=== PATIENT | male | born 1980 | race African-American/Black ===

== ENCOUNTER 2024-03-04 19:28 | Emergency (ER) | payer OTHER, SELFPAY ==
[2024-03-04] VITALS (11 sets, daily range): BP systolic 100–140; BP diastolic 67–87; PULSE 83–109; RESP 15–25; TEMP 36.6; O2SAT 97–100
[2024-03-04 19:44] LABS: Glucose Point of Care 451 mg/dl (65-105)
[2024-03-04 20:01] LABS: Glucose Point of Care 461 mg/dl (65-105)
[2024-03-04] MEDS: SODIUM CHLORIDE 0.9% IV 1,000 ML 999 ML (20:10)
--- NOTE | 2024-03-04 20:11 | PC.NURSE ---
edp dr. marie verbal ordered a bolus of fluids at a rate of 999mls/ hour for patient. this rn used closed loop communication to confirm rate/ dose/ route/ patient/ time. edp dr. marie confirmed medication. this rn initiated iv bolus of normal saline at a rate of 999mls/ hour.
[2024-03-04 20:12] LABS: Basophils Percent Auto 0.7 % (0.2-1.2); Eosinophils Absolute Auto 0.1 K/mm3 (0-0.3); Eosinophils Percent Auto 0.8 % (0-4.4); Hematocrit 40.8 % (42.0-52.0); Hemoglobin 13.6 g/dL (14.0-18.0); Immature Granulocyte Absolute 0.01 K/mm3 (0.00-0.031); Immature Granulocyte Percent A 0.2 % (0-0.5); Lymphocytes Absolute Auto 2.29 K/mm3 (0.9-3.2); Lymphocytes Percent Auto 38.6 % (18.3-44.2); Mean Corpuscular HGB Conc 33.3 g/dl (32-36); Mean Corpuscular Hemoglobin 30.9 pg (26-34); Mean Corpuscular Volume 92.7 fl (80-100); Mean Platelet Volume 10.2 fl (7.4-10.4); Monocytes Absolute Auto 0.4 K/mm3 (0.1-0.6); Monocytes Percent Auto 7.3 % (2.6-8.5); Neutrophils Absolute Auto 3.1 K/mm3 (1.3-6.7); Neutrophils Percent Auto 52.4 % (45.5-73.1); Platelet Count Result 255 k/mm3 (150-375); Red Cell Distribution Width 11.5 % (11.5-14.5); White Blood Count 5.9 K/mm3 (4.5-10.0)
[2024-03-04 20:22] LABS: Lactic Acid Reflex 2.3 mmol/L (0.7-2.0)
[2024-03-04 20:24] LABS: Alanine Aminotransferase 17 U/L (6-50); Albumin Level 4.4 g/dL (3.5-5.1); Alkaline Phosphatase 139 U/L (38-126); Anion Gap 9 mmol/L (4-12); Aspartate Amino Transferase 21 U/L (17-59); Bilirubin,Total 0.7 mg/dL (0.2-1.3); Blood Urea Nitrogen 17 mg/dL (9-20); Calcium 9.3 mg/dL (8.4-10.2); Carbon Dioxide 26 mmol/L (22-30); Chloride 97 mmol/L (98-107); Estimated CRCL calculation 72 ml/min; Estimated Glomerular Filt Rate > 60; Glucose 463 mg/dL (65-110); Potassium 3.9 mmol/L (3.4-5.0); Sodium 132 mmol/L (137-145)
[2024-03-04 20:28] LABS: Beta-Hydroxybutyrate/Acetoacetate 0.29 mmol/L (0.02-0.27)
--- NOTE | 2024-03-04 20:48 | ED.GENADULT ---
HPI - General Adult General Chief complaint: Recheck/Abnormal Lab/Rx Stated complaint: high blood sugar Time Seen by Provider: 03/04/24 19:45 History of Present Illness HPI narrative: Patient is a 44-year-old male who presents to the emergency department this evening concerned of a high glucose level. Patient admits that he does have a history of diabetes, unsure if it is type 1 or 2, was diagnosed at a young age and initially was placed on metformin, however, when that did not work for him he was started on insulin. Patient states that his insulin regimen is either her 20 units of insulin in the morning and 20 in the evening or 10 in the morning, 10 in the afternoon and 10 in the evening. Patient states that today he did 20 and 20, however, he noticed that when he does 10 units 3 times a day that attempts to control his blood sugar better and believes that this may be the reason why his sugars were elevated today. Patient states that he does monitor his sugar levels frequently, sometimes he will forget to do so but his sugars the last few days have been within normal limits. Patient's current denying any symptoms including chest pain, shortness of breath, nausea or vomiting, denies any abdominal pain. No additional symptoms or concerns at this time. Related Data Allergies Allergy/AdvReac Type Severity Reaction Status Date / Time Penicillins Allergy Unknown Verified 07/17/15 14:59 Review of Systems Review of Systems: All systems are reviewed and are negative unless stated otherwise in the HPI. Exam Narrative: General: Alert, awake, afebrile, in no acute distress. Cardiovascular: Regular rate and rhythm, no murmurs, rubs or gallops, no peripheral edema. Respiratory: Clear to auscultation bilaterally, no tachypnea, no wheezing, no rhonchi, no rubs, no respiratory distress. Abdomen: Soft, nontender, nondistended, no rebound, no guarding, no peritoneal signs. Musculoskeletal: No joint swelling or deformity, normal muscle tone. Skin: No rashes or petechia, no signs of infection. Psychiatric: Alert and oriented, normal behavior and judgment for situation. Neurological: Alert and oriented to person, place, and time. Follows all commands. No focal deficits, speech is clear and fluent. Course Vital Signs Vital signs: Vital Signs Temperature 97.8 F 03/04/24 19:30 Pulse Rate 109 H 03/04/24 19:30 Respiratory Rate 18 03/04/24 19:30 Blood Pressure 140/87 03/04/24 19:30 Pulse Oximetry 100 03/04/24 19:30 Oxygen Delivery Room Air 03/04/24 19:30 Temperature 97.8 F 03/04/24 19:30 Pulse Rate 87 03/04/24 22:00 Respiratory Rate 18 03/04/24 22:00 Blood Pressure 111/71 03/04/24 22:00 Pulse Oximetry 97 03/04/24 22:00 Oxygen Delivery Room Air 03/04/24 19:30 Medical Decision Making MDM Narrative Medical decision making narrative: The patient was evaluated by myself in the emergency department. History is obtained from patient who is an independent historian and physical exam was performed. External medical records were reviewed at this time. IV was established and pertinent tests were ordered. Patient was administered a 1 L IV fluid bolus with normal saline. Laboratory results obtained revealing a glucose level of 463, lactic acid of 2.3, and beta hydroxybutyrate of 0.29. At this time, patient was administered 5 units of IV insulin. Differential diagnosis considerations include hyperglycemia versus diabetic ketoacidosis. Comorbidities impacting this visit include history of diabetes. I have evaluated and discussed social determinants of health with the patient that could potentially impact subsequent diagnosis and treatment plans. On repeat assessment of the patient, reevaluation revealed that the patient is doing well and is in no acute distress. Patient symptoms have improved since he arrived to our emergency department. Repeat vital signs were all reviewed and noted to be
[2024-03-04] MEDS: INSULIN HUMAN REGULAR (*BKC) 100 UNITS/ML IV PUSH (20:54)
[2024-03-04 22:03] LABS: Glucose Point of Care 124 mg/dl (65-105)
[2024-03-04 23:08] LABS: Reflex Lactic Acid Yes or No Add Lactic
== END 2024-03-04 22:09 | disposition home or self-care (01) ==
PROVIDERS: Emergency Provider Emergency Medicine
DX: E11.65 Type 2 diabetes mellitus with hyperglycemia (principal); Z79.4 Long term (current) use of insulin
CPT/HCPCS: 36415; 80053; 82010; 82948; 83605; 85025; 96361; 96374; 99284; J1815; J7030

== ENCOUNTER 2024-09-20 13:20 | Inpatient (IN) | payer OTHER, SELFPAY ==
[2024-09-20] VITALS (8 sets, daily range): BP systolic 96–124; BP diastolic 55–78; PULSE 110–141; RESP 15–24; TEMP 36.3–36.6; O2SAT 100; BMI 17.6
--- NOTE | ~2024-09-20 | CT_ITS ---
EXAMINATION: CT chest abdomen pelvis w con DATE: 09/20/2024 15:06 INDICATION: Diabetic ketoacidosis. TECHNIQUE: Computed tomography (CT) of the chest, abdomen, and pelvis was performed with 100 mL Omnip aque 350 intravenous contrast. Automated exposure control and iterative reconstruction technique were employed. The dose-length product was 305.54 mGy-cm. COMPARISON: None FINDINGS: CHEST CT: There is mild emphysema. There is mild scarring at the lung apices. There are a few scattered nodules in the lungs measuring up to 5 mm, likely benign. No pleural effusion. The heart size is normal. No pericardial effusion. There is mild thoracic spondylosis. ABDOMEN/PELVIS CT: The liver, gallbladder, spleen, pancreas, adrenal glands, and kidneys are normal. There are no dilate d loops of bowel. The appendix is not visualized. There are no pathologically enlarged lymph nodes. T here is no free intraperitoneal fluid. There is mild lumbar spondylosis. IMPRESSION: 1. Mild emphysema. Reviewed, dictated and finalized at location A. ING MACHINE TENDER IMPRESSION: 1. Mild emphysema.
--- NOTE | ~2024-09-20 | US_ITS ---
EXAMINATION: US renal BI DATE: 09/20/2024 17:00 INDICATION: Acute kidney injury. TECHNIQUE: Multiple ultrasound grayscale images of the kidneys were obtained. COMPARISON: CT 09/20/2024 FINDINGS: The right kidney measures 11.1 x 4.9 x 6.2 cm. The left kidney measures 10.7 x 5.9 x 5.5 cm. The kidn eys demonstrate increased parenchymal echogenicity, consistent with nonspecific nephropathy. There is no hydronephrosis. The bladder is normal. IMPRESSION: 1. Increased renal parenchymal echogenicity, consistent with nonspecific nephropathy. Reviewed, dictated and finalized at location A. AGENT IMPRESSION: 1. Increased renal parenchymal echogenicity, consistent with nonspecific nephr opathy.
[2024-09-20 13:58] LABS: Basophils Absolute Auto 0.1 K/mm3 (0.0-0.1); Basophils Percent Auto 0.5 % (0.2-1.2); Eosinophils Percent Auto 0.1 % (0-4.4); Hematocrit 54.8 % (42.0-52.0); Hemoglobin 17.7 g/dL (14.0-18.0); Immature Granulocyte Absolute 0.53 K/mm3 (0.00-0.031); Immature Granulocyte Percent A 2.6 % (0-0.5); Lymphocytes Absolute Auto 2.26 K/mm3 (0.9-3.2); Lymphocytes Percent Auto 10.9 % (18.3-44.2); Mean Corpuscular HGB Conc 32.3 g/dl (32-36); Mean Corpuscular Hemoglobin 30.8 pg (26-34); Mean Corpuscular Volume 95.3 fl (80-100); Mean Platelet Volume 10.4 fl (7.4-10.4); Monocytes Absolute Auto 0.9 K/mm3 (0.1-0.6); Monocytes Percent Auto 4.3 % (2.6-8.5); Neutrophils Absolute Auto 16.9 K/mm3 (1.3-6.7); Neutrophils Percent Auto 81.6 % (45.5-73.1); Platelet Count Result 313 k/mm3 (150-375); Red Blood Count 5.75 M/mm3 (4.6-6.20); Red Cell Distribution Width 12.4 % (11.5-14.5); White Blood Count 20.7 K/mm3 (4.5-10.0)
[2024-09-20 14:10] LABS: Alanine Aminotransferase 39 U/L (6-50); Albumin Level 5.7 g/dL (3.5-5.1); Alkaline Phosphatase 126 U/L (38-126); Aspartate Amino Transferase 47 U/L (17-59); Bilirubin,Total 1.1 mg/dL (0.2-1.3); Blood Urea Nitrogen 26 mg/dL (9-20); Calcium 9.9 mg/dL (8.4-10.2); Carbon Dioxide < 5 mmol/L (22-30); Chloride 97 mmol/L (98-107); Estimated CRCL calculation 33 ml/min; Estimated Glomerular Filt Rate 42; Glucose 316 mg/dL (65-110); Lipase 385 U/L (23-300); Potassium 4.7 mmol/L (3.4-5.0); Sodium 138 mmol/L (137-145)
[2024-09-20] MEDS: LACTATED RINGERS 2,000 ML 999 ML IV CONT (14:10)
[2024-09-20 14:22] LABS: Fractional Inspired Oxygen 21 %; HCO3 VBG 6.8 mEq/l (24.0-30.0); PO2 VBG 36.2 mmHg (35.0-45.0)
[2024-09-20 14:26] LABS: Device ROOM AIR; PCO2 VBG 25.9 mmHg (42.0-48.0); pH VBG 7.037 (7.300-7.400)
[2024-09-20 14:35] LABS: Magnesium 2.4 mg/dL (1.6-2.3)
--- NOTE | 2024-09-20 14:36 | ED_ITS ---
HPI - Nausea/Vomiting/Diarrhea General Chief complaint: Nausea/Vomiting/Diarrhea Stated complaint: weakness, vomiting, diarrhea Time Seen by Provider: 09/20/24 13:47 Source: patient Mode of arrival: ambulatory Limitations: no limitations History of Present Illness HPI Narrative: This is a 44-year-old male, with history of diabetes, with a recently increased dose of Jardiance from 10mg to 25mg who presents emergency department with nausea, vomiting, generalized weakness for the past day and 25 lb weight loss with a past 2 months. The patient denies any known sick contacts or recent travel. He denies bleeding, chest pain, shortness of breath, focal weakness, or loss of consciousness. He has no other complaints at this time. Related Data Home Medications Medication Instructions Recorded Confirmed atorvastatin 80 mg tablet 80 mg PO HS 09/20/24 09/20/24 empagliflozin 25 mg tablet 25 mg PO DAILY 09/20/24 09/20/24 (Jardiance) insulin glargine U-300 conc 300 10 unit subcut HS 09/20/24 09/20/24 unit/mL (1.5 mL) subcutaneous pen (Toujeo SoloStar U-300 Insulin) Allergies Allergy/AdvReac Type Severity Reaction Status Date / Time mold Allergy Mild Congested Verified 09/20/24 17:36 Penicillins Allergy Unknown Unknown Verified 09/20/24 17:36 Review of Systems Review of Systems: All systems reviewed & are unremarkable except as noted in HPI and below PMFSH Past Medical History Medical History (Updated 09/20/24 @ 19:12 by Renita Vásquez PA-C) 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 Code status: Full code. Years smoked: 5 Smoking status: Current every day smoker Tobacco type: cigarettes Second hand tobacco smoke exposure: Yes Alcohol intake: current Drinks per week: 1 Substance use type: marijuana Do You Feel Safe in your Home?: Yes Lack of Transportation: No Lack of Food: Never True Current Housing: I Have Housing Concerned About Future Housing: No Difficulty Paying Gas/Electric Bills: No Difficulty Paying for Meds: No Currently Unemployed: No Education: Bachelor's Degree Difficulty w/ Childcare or Family Care: No Additional living arrangements comments: Lives in [place] with spouse. They have 2 teenaged boys. Additional occupation/education comments: [employer]. Spiritual care concerns: No Exam Narrative: GENERAL: Well-developed, cachectic, and in no acute distress. appears uncomfortable HEAD: Normocephalic, atraumatic. EYES: PERRLA and EOMI. ENT: Nares clear, no rhinorrhea or epistaxis. Mucous membranes dry. Oropharynx without tonsillar hypertrophy exudate or other lesions. CHEST: Clear to auscultation. No respiratory distress. No wheezes rales or rhonchi HEART: tachycardic with regular rhythm. No murmur heard. Normal peripheral pulses. ABDOMEN: Soft, nontender, nondistended, normal active bowel sounds. EXTREMITIES: Normal range of motion. No edema. SKIN: Warm, dry, no rash. NEURO: Alert and oriented x3. No focal deficit. Moving all 4 limbs spontaneously PSYCH: Normal mood and affect. Course Course Emergency Course: 14:36 - VBG demonstrates a pH of 7.04 with bicarb of 6 and pCO2 of 25.9. I suspect metabolic acidosis, likely secondary to DKA. chemistries demonstrate creatinine elevation of 2.1 with chloride of 97 and bicarb of 5. Anion gap of 36. potassium 4.7. Will give an additional L of fluids for a total of 3 followed by insulin drip, potassium supplementation. Lipase elevated to 385. 15:30 - CT chest abdomen pelvis negative for acute intraabdominal or cardiothoracic process, does show emphysema. I discussed the patient with hospitalist, JESSE Vásquez who accepts admission and washing machine repairer, Dr. Engle who accepts admission to ICU. I discussed these findings recommendations with the patient, who voiced understanding and is comfortable with plan. Vital Signs Vital signs: Vital Signs Temperature 97.8 F 09/20/24 13:22 Pulse Rate 141 H 09/20/24 13:22 Respiratory Rate 18 09/20/24 13:22 Blood Pressure 108/74 09/20/24 13:22 Pulse Oximetry 100 09/20/24 13:22 Oxygen Delivery Room Air 09/20/24 13:22 Temperature 97.4 F L 09/20/24 20:00 Pulse Rate 110 H 09/20/24 22:00 Respiratory Rate 16 09/20/24 22:00 Blood Pressure 96/55 L 09/20/24 22:00 Pulse Oximetry 100 09/20/24 22:00 Oxygen Delivery Room Air 09/20/24 20:00 MDM - Nausea/Vomiting/Diarrhea MDM Narrative Medical decision making narrative: Plan: Labs, IV fluids, antiemetics, VBG, reassess Differential Diagnosis Differential diagnosis: Likely gastroenteritis, drug-induced nausea and vomiting, dehydration and other ( DKA, UTI, malignancy, medication side effect, metabolic abnormality, other) Lab Data 09/20/24 13:45 09/20/24 22:37 Labs: Lab Results 09/20/24 09/20/24 09/20/24 Range/Units 13:45 14:16 14:18 WBC 20.7 H (4.5-10.0) K/mm3 RBC 5.75 (4.6-6.20) M/mm3 Hgb 17.7 D (14.0-18.0) g/dL Hct 54.8 H (42.0-52.0) % MCV 95.3 (80-100) fl MCH 30.8 (26-34) pg MCHC 32.3 (32-36) g/dl RDW 12.4 (11.5-14.5) % Plt Count 313 (150-375) k/mm3 MPV 10.4 (7.4-10.4) fl Immature Gran % (Auto) 2.6 H (0-0.5) % Neut % (Auto) 81.6 H (45.5-73.1) % Lymph % (Auto) 10.9 L (18.3-44.2) % [place] % (Auto) 4.3 (2.6-8.5) % Eos % (Auto) 0.1 (0-4.4) % Baso % (Auto) 0.5 (0.2-1.2) % Lymph # (Auto) 2.26 (0.9-3.2) K/mm3 [place] # (Auto) 0.9 H (0.1-0.6) K/mm3 Eos # (Auto) 0.0 (0-0.3) K/mm3 Baso # (Auto) 0.1 (0.0-0.1) K/mm3 Abs Immat Gran (auto) 0.53 H (0.00-0.031) K/mm3 Absolute Neuts (auto) 16.9 H (1.3-6.7) K/mm3 Absolute Nucleated RBC 0.000 (0.0-0.012) K/mm3 Nucleated RBC % 0.0 (0.0-0.2) % Sodium 138 (137-145) mmol/L Potassium 4.7 (3.4-5.0) mmol/L Chloride 97 L (98-107) mmol/L Carbon Dioxide < 5 L (22-30) mmol/L Anion Gap (4-12) mmol/L BUN 26 H (9-20) mg/dL Creatinine 2.10 H (0.7-1.3) mg/dL Estim Creat Clear Calc 33 ml/min Estimated GFR 42 L (59 - ) Glucose 316 H (65-110) mg/dL POC Capillary Glucose (65-105) mg/dl Hemoglobin A1c 11.9 H (<5.7) % Lactic Acid 4.0 H (0.7-2.0) mmol/L Calcium 9.9 (8.4-10.2) mg/dL Phosphorus 10.5 H (2.5-4.5) mg/dL Magnesium 2.5 H 2.4 H (1.6-2.3) mg/dL Total Bilirubin 1.1 (0.2-1.3) mg/dL AST 47 (17-59) U/L ALT 39 (6-50) U/L Alkaline Phosphatase 126 (38-126) U/L C-Reactive Protein < 0.5 (<1.0) mg/dL Total Protein 9.0 H (6.3-8.2) g/dL Albumin 5.7 H (3.5-5.1) g/dL Lipase 385 H (23-300) U/L Beta-Hydroxybutyrate/Acetoacetate < 1.50 H (0.02-0.27) mmol/L Procalcitonin 0.1 ng/mL Urine Color (Yellow) Urine Appearance (Clear) Urine pH (5.0-9.0) Ur Specific [place] (1.001-1.035) Urine Protein (Negative) mg/dL Urine Glucose (UA) (Negative) mg/dL Urine Ketones (Negative) mg/dL Ur Blood (Man) (Negative) Urine Nitrate (Negative) Urine Bilirubin (Negative) Urine Urobilinogen (<2.0) mg/dL Add Ur Microanalysis Leukocyte Esterase Rfl (Negative) JAN/UL Urine RBC (0-2) /hpf Urine WBC (0-3) /hpf Ur Squamous Epith Cells (Few) /hpf Urine Bacteria /hpf Urine Casts Hyaline Casts (None) /lpf 09/20/24 09/20/24 09/20/24 Range/Units 15:18 15:42 16:56 WBC (4.5-10.0) K/mm3 RBC (4.6-6.20) M/mm3 Hgb (14.0-18.0) g/dL Hct (42.0-52.0) % MCV (80-100) fl MCH (26-34) pg MCHC (32-36) g/dl RDW (11.5-14.5) % Plt Count (150-375) k/mm3 MPV (7.4-10.4) fl Immature Gran % (Auto) (0-0.5) % Neut % (Auto) (45.5-73.1) % Lymph % (Auto) (18.3-44.2) % [place] % (Auto) (2.6-8.5) % Eos % (Auto) (0-4.4) % Baso % (Auto) (0.2-1.2) % Lymph # (Auto) (0.9-3.2) K/mm3 [place] # (Auto) (0.1-0.6) K/mm3 Eos # (Auto) (0-0.3) K/mm3 Baso # (Auto) (0.0-0.1) K/mm3 Abs Immat Gran (auto) (0.00-0.031) K/mm3 Absolute Neuts (auto) (1.3-6.7) K/mm3 Absolute Nucleated RBC (0.0-0.012) K/mm3 Nucleated RBC % (0.0-0.2) % Sodium (137-145) mmol/L Potassium (3.4-5.0) mmol/L Chloride (98-107) mmol/L Carbon Dioxide (22-30) mmol/L Anion Gap (4-12) mmol/L BUN (9-20) mg/dL Creatinine (0.7-1.3) mg/dL Estim Creat Clear Calc ml/min Estimated GFR (59 - ) Glucose (65-110) mg/dL POC Capillary Glucose 342 H 282 H (65-105) mg/dl Hemoglobin A1c (<5.7) % Lactic Acid (0.7-2.0) mmol/L Calcium (8.4-10.2) mg/dL Phosphorus (2.5-4.5) mg/dL Magnesium (1.6-2.3) mg/dL Total Bilirubin (0.2-1.3) mg/dL AST (17-59) U/L ALT (6-50) U/L Alkaline Phosphatase (38-126) U/L C-Reactive Protein (<1.0) mg/dL Total Protein (6.3-8.2) g/dL Albumin (3.5-5.1) g/dL Lipase (23-300) U/L Beta-Hydroxybutyrate/Acetoacetate (0.02-0.27) mmol/L Procalcitonin ng/mL Urine Color Yellow (Yellow) Urine Appearance Clear (Clear) Urine pH 5.0 (5.0-9.0) Ur Specific [place] 1.025 (1.001-1.035) Urine Protein 2+ H (Negative) mg/dL Urine Glucose (UA) 3+ H (Negative) mg/dL Urine Ketones 4+ H (Negative) mg/dL Ur Blood (Man) 1+ H (Negative) Urine Nitrate Negative (Negative) Urine Bilirubin Negative (Negative) Urine Urobilinogen 0.2 (<2.0) mg/dL Add Ur Microanalysis Reviewed Leukocyte Esterase Rfl Negative (Negative) JAN/UL Urine RBC 0-2 (0-2) /hpf Urine WBC 6-10 H (0-3) /hpf Ur Squamous Epith Cells None seen (Few) /hpf Urine Bacteria None seen /hpf Urine Casts 6-10 Hyaline Casts Present (None) /lpf ABG Data ABG results: 09/20/24 14:18 VBG pH 7.037 L* VBG pCO2 25.9 L* VBG pO2 36.2 VBG HCO3 6.8 L O2 Delivery Device Room air O2 Liters/Min Not Reportable FiO2 21 Critical Care Time Critical Care Time Critical Care Time: Yes Total Critical Care Time: 35 Discharge Plan Discharge Clinical Impression: Metabolic acidosis, JERRY (acute kidney injury), Elevated lipase DKA (diabetic ketoacidosis) Qualifiers: Diabetes mellitus type: other specified (including JESSICA) Diabetes mellitus complication detail: without coma Qualified Code(s): E13.10 - Other specified diabetes mellitus with ketoacidosis without coma Patient Disposition: Still a Patient Condition: Critical Time of Disposition: 15:30
[2024-09-20 15:34] LABS: Add Urine Microscopic? YES; Appearance Urine Clear (Clear); Bacteria Urine None Seen /hpf; Bilirubin Urine Negative (Negative); Blood Urine 1+ (Negative); Color Urine Yellow (Yellow); Glucose Urine UA 3+ mg/dL (Negative); Hyaline Casts Urine Present /lpf; Ketones Urine 4+ mg/dL (Negative); Leukocyte Esterase Ur Negative LEU/UL (Negative); Need Manual Microscopic Reviewed; Nitrate Urine Negative (Negative); Protein Urine 2+ mg/dL (Negative); RBC Urine 0-2 /hpf (0-2); Specific Grav Ur 1.025 (1.001-1.035); Squamous Epithelial Cell Urine None Seen /hpf (Few); Urobilinogen Urine 0.2 mg/dL (<2.0)
--- NOTE | 2024-09-20 15:35 | P.HP_ITS ---
H&P: HPI History of Present Illness Date/Time: 09/20/24 15:45 Chief Complaint: Nausea, vomiting, weakness. Narrative: This is a 44-year-old male with type 1.5 diabetes mellitus who presented to the emergency department via private vehicle for evaluation of nausea, vomiting, and weakness. The patient provides the following history. He has been on Toujeo for quite some time and Jardiance was added to his regimen several months ago. Since that time he has lost about 25 lb unintentionally; he reports having a good appetite and denies early satiety and frequent nausea or vomiting. Last evening however he began to feel unwell with symptoms to include nausea, burning epigastric discomfort, and multiple bouts of nonbloody and nonbilious emesis. He has had a few loose stools as well. Today he was feeling very fatigued, weak, and extremely thirsty and came in for evaluation. He has some sinus congestion but attributes that to cold (he works outside). He denies fever, chills, sweats, headache, sore throat, cough, shortness of breath, melena, hematochezia, dysuria, and open wounds. Mother was diagnosed with colon cancer in her late 70s or early 80s. He has never had a colonoscopy. No known history of thyroid disease. In the ED: Vital signs on arrival include a temperature 97.8?, pulse 141, blood pressure 108/74, respiratory 18, SpO2 100% room air. Labs are significant for WBC count of 20.7, hemoglobin 17.7, hematocrit 54.8%, chloride 97, serum carbon dioxide < 5, BUN 26, creatinine 2.10, glucose 316, lactic acid 4.0, total protein 9.0, albumin 5.7. Urinalysis was positive for 2+ protein, 3+ glucose, 4+ ketones, 1+ blood, and [address] of the chest, abdomen, and pelvis was without acute findings. VBG with pH of 7.037, pCO2 25.9, HC03 6.8. He received 3 L lactated Ringer's bolus and was started on and insulin drip and he is being admitted to the ICU in this setting for treatment of diabetic ketoacidosis. Review of Systems Review of Systems: 12 systems were reviewed and are negativ e except for as per HPI. 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 Code status: Full code. Years smoked: 5 Smoking status: Current every day smoker Tobacco type: cigarettes Second hand tobacco smoke exposure: Yes Alcohol intake: current Drinks per week: 1 Substance use type: marijuana Do You Feel Safe in your Home?: Yes Lack of Transportation: No Lack of Food: Never True Current Housing: I Have Housing Concerned About Future Housing: No Difficulty Paying Gas/Electric Bills: No Difficulty Paying for Meds: No Currently Unemployed: No Education: Bachelor's Degree Difficulty w/ Childcare or Family Care: No Additional living arrangements comments: Lives in [place] with spouse. They have 2 teenaged boys. Additional occupation/education comments: [employer]. Spiritual care concerns: No Meds Home Medications and Allergies Home Medications Medication Instructions Recorded Confirmed Type atorvastatin 80 mg tablet 80 mg PO HS 09/20/24 09/20/24 History empagliflozin 25 mg tablet 25 mg PO DAILY 09/20/24 09/20/24 History (Jardiance) insulin glargine U-300 conc 300 10 unit subcut HS 09/20/24 09/20/24 History unit/mL (1.5 mL) subcutaneous pen (Toujeo SoloStar U-300 Insulin) Allergies Allergy/AdvReac Type Severity Reaction Status Date / Time mold Allergy Mild Congested Verified 09/20/24 17:36 Penicillins Allergy Unknown Unknown Verified 09/20/24 17:36 Vital Signs Vital Signs - 24 hr 09/20/24 13:22 Temperature 97.8 F Pulse Rate 141 H Respiratory Rate 18 Blood Pressure 108/74 Pulse Oximetry 100 Oxygen Delivery Room Air Exam Narrative: General: Moderately ill-appearing male lying on his right side in bed. Weight: 54.09 kg. BMI: 17.6. HEENT: PERRL, EOMI. Sclera anicteric. Tacky mucous membranes. Some cracked teeth and dental caries. Neck: Supple. No lymphadenopathy. Respiratory: Lungs are clear to auscultation bilaterally. Cardiovascular: Tachycardic with normal S1-S2. Gastrointestinal: Abdomen is soft, flat, and nondistended with positive bowel sounds. He is slightly tender to deep palpation epigastric region. No guarding or rebound tenderness. Skin: Warm and dry. No rash or lesions on limited exam. Extremities: No cyanosis, clubbing, or edema. Radial and pedal pulses intact. Neurological: Alert. Cranial nerves 2-12 are grossly intact. No gross focal deficits to casual conversation. Psychiatric: Pleasant and cooperative with normal mood and affect. Judgment and insight intact. H&P: Results Labs Labs: Short CBC 09/20/24 Range/Units 13:45 WBC 20.7 H (4.5-10.0) K/mm3 Hgb 17.7 D (14.0-18.0) g/dL Hct 54.8 H (42.0-52.0) % Plt Count 313 (150-375) k/mm3 BMP 09/20/24 13:45 Sodium 138 Potassium 4.7 Chloride 97 L Carbon Dioxide < 5 L BUN 26 H Creatinine 2.10 H Glucose 316 H Calcium 9.9 Liver Function 09/20/24 Range/Units 13:45 Total Bilirubin 1.1 (0.2-1.3) mg/dL AST 47 (17-59) U/L ALT 39 (6-50) U/L Alkaline Phosphatase 126 (38-126) U/L Albumin 5.7 H (3.5-5.1) g/dL Imaging Chest/Abdomen/Pelvis CT 09/20/24 15:12 IMPRESSION: 1. Mild emphysema. ABG ABG results: 09/20/24 14:18 VBG pH 7.037 L* VBG pCO2 25.9 L* VBG pO2 36.2 VBG HCO3 6.8 L O2 Delivery Device Room air O2 Liters/Min Not Reportable FiO2 21 Assessment and Plan Assessment and plan (1) Diabetic ketoacidosis: Code(s): E11.10 - Type 2 diabetes mellitus with ketoacidosis without coma Status: Acute Assessment and Plan: Patient presents with hyperglycemia, increased anion gap metabolic acidosis, and ketonuria. * Admit to ICU on insulin drip which will be titrated per protocol. * Continue Q hourly Accu-Cheks and Q 4 hour BMPs to monitor for anion gap closure. * Resume basal insulin upon resolution of DKA. * Dietitian and certified adaptive physical educator consulted. * Hold/discontinue Jardiance. (2) Acute kidney injury: Code(s): N17.9 - Acute kidney failure, unspecified Status: Acute Assessment and Plan: Most likely related to hypovolemia from dehydration, he is dry on exam and quite hemoconcentrated. * Received 3 L lactated Ringer's in the ED, continue IV fluids. * Avoid nephrotoxic agents and renally dose all medications. * Monitor strict I/O and daily weights. * Renal ultrasound ordered. (3) Metabolic acidosis, increased anion gap: Code(s): E87.29 - Other acidosis Status: Acute Assessment and Plan: Related to DKA and renal insufficiency. Lactic acid level was elevated at 4.0. WBC count is 20.7 though doubt sepsis. * Repeat lactic acid level now that he has been adequately hydrated. * Continue q.4 BMPs to monitor for anion gap closure. * Blood cultures have been obtained. (4) Dehydration: Code(s): E86.0 - Dehydration Status: Acute Assessment and Plan: Received 3 L lactated Ringer's in the ED, continue IV fluids as above. (5) Unintentional weight loss: Code(s): R63.4 - Abnormal weight loss Status: Acute Assessment and Plan: Patient reports a 25 lb weight loss in the last couple of months after starting Jardiance which may very well be the cause. Mother had colon cancer in her late 70s or early. * Check TSH. * He has never had a colonoscopy. * Discontinue Jardiance. Quality VTE Prophylaxis VTE prophylaxis: pharmacologic ordered Hospitalist MIPS Advance Care Plan I have confirmed that the patient's Advanced Care Plan is present, code status is documented, or surrogate decision maker is listed in patient medical record.: Yes Medication Reconciliation I have utilized all available resources to obtain, update and review the p atients current medications (includes all prescriptions, OTC, herbals, cannabis, and nutritional supplements).: Yes Critical Care Time Critical Care Time: Yes Total Critical Care Time: 55 Attestation: Due to a high probability of clinically significant, life threatening deteri oration, the patient required my highest level of preparedness to intervene emergently and I personally spent this critical care time directly and personally managing the patient. This critical care time included obtaining a history; examining the patient; pulse oximetry; ordering and review of studies; arranging urgent treatment with development of a management plan; evaluation of patient's response to treatment; frequent reassessment; and discussions with other providers. It was exclusive of separately billable procedures and treating other patients and teaching time. Please see Assessment and Plan section and the rest of the note for further information on patient assessment and treatment.
[2024-09-20] MEDS: LACTATED RINGERS 1,000 ML 999 ML IV CONT (15:43)
[2024-09-20] MEDS: INSULIN HUMAN REGULAR (*BKC) 100 UNITS in SODIUM CHLORIDE 0.9% IV 99 ML 5.5 UNITS IV CONT (15:45)
[2024-09-20] MEDS: INSULIN HUMAN REGULAR (*BKC) 100 UNITS/ML 9 UNITS IV PUSH (15:45)
[2024-09-20] MEDS: ONDANSETRON INJ 4 MG/2 ML VIAL IV PUSH (15:57)
[2024-09-20 15:59] LABS: Glucose Point of Care 342 mg/dl (65-105)
[2024-09-20 16:14] LABS: Beta-Hydroxybutyrate/Acetoacetate < 1.50 mmol/L (0.02-0.27)
[2024-09-20 16:27] LABS: CRP < 0.5 mg/dL (<1.0)
[2024-09-20] MEDS: PANTOPRAZOLE SODIUM IV 40 MG VIAL IV PUSH (16:33)
[2024-09-20 16:44] LABS: Procalcitonin 0.1 ng/mL
[2024-09-20 16:57] LABS: Glucose Point of Care 282 mg/dl (65-105)
[2024-09-20 17:18] LABS: Reflex Lactic Acid Yes or No Add Lactic
--- NOTE | 2024-09-20 17:23 | PC.NURSE ---
This patient, Mike Hooper, was admitted to Intensive Care Unit-3 at approximately 1715. Patient/family oriented to hospital policies and general routines including ID bracelet, bed and alarms, visiting hours, pain management, procedures, bathroom and other care routines, personal items, smoking policy, room service/diet, and visiting hours. Information on how to activate the Rapid Response Team has been discussed. Patient/Family are encouraged to report perceived risks to care and to ask questions if they do not understand what they are told or what they should do.
[2024-09-20] MEDS: SODIUM CHLORIDE 0.9% IV 1,000 ML 150 ML IV CONT (17:27)
[2024-09-20] MEDS: KCL 20 MEQ/D5/0.45% SOD CHL 1,000 ML 150 ML IV CONT (17:57)
[2024-09-20 18:08] LABS: Glucose Point of Care 249 mg/dl (65-105)
[2024-09-20 18:28] LABS: Hemoglobin A1C 11.9 % (<5.7)
[2024-09-20 18:56] LABS: Glucose Point of Care 204 mg/dl (65-105)
[2024-09-20 18:58] LABS: Magnesium 2.5 mg/dL (1.6-2.3); Phosphorus 10.5 mg/dL (2.5-4.5)
[2024-09-20 19:05] LABS: Lactic Acid 1.7 mmol/L (0.7-2.0)
[2024-09-20 19:06] LABS: Blood Urea Nitrogen 23 mg/dL (9-20); Calcium 8.7 mg/dL (8.4-10.2); Carbon Dioxide < 5 mmol/L (22-30); Chloride 107 mmol/L (98-107); Estimated CRCL calculation 50 ml/min; Estimated Glomerular Filt Rate > 60; Glucose 236 mg/dL (65-110); Potassium 4.6 mmol/L (3.4-5.0); Sodium 138 mmol/L (137-145)
[2024-09-20 19:25] LABS: MRSA (PCR) NOT DETECTED (NOT DETECTE)
[2024-09-20] MEDS: ATORVASTATIN 40 MG TABLET 80 MG PO (19:56)
[2024-09-20 20:03] LABS: Glucose Point of Care 240 mg/dl (65-105)
[2024-09-20 21:12] LABS: Glucose Point of Care 175 mg/dl (65-105)
[2024-09-20 22:04] LABS: Glucose Point of Care 206 mg/dl (65-105)
[2024-09-20 23:05] LABS: Anion Gap 19 mmol/L (4-12); Blood Urea Nitrogen 21 mg/dL (9-20); Calcium 8.6 mg/dL (8.4-10.2); Carbon Dioxide 8 mmol/L (22-30); Chloride 108 mmol/L (98-107); Estimated CRCL calculation 58 ml/min; Estimated Glomerular Filt Rate > 60; Glucose 196 mg/dL (65-110); Potassium 4.6 mmol/L (3.4-5.0); Sodium 135 mmol/L (137-145)
[2024-09-20 23:05] LABS: Glucose Point of Care 189 mg/dl (65-105)
[2024-09-20 23:36] LABS: Creatine Kinase 72 U/L (55-170)
[2024-09-21] VITALS (9 sets, daily range): BP systolic 102–119; BP diastolic 48–84; PULSE 88–109; RESP 14–20; TEMP 36.4–37; O2SAT 99–100; BMI 19.3
[2024-09-21 00:01] LABS: Thyroid Stimulating Hormone Reflex 0.345 uIU/mL (0.465-4.68)
[2024-09-21 00:14] LABS: Glucose Point of Care 202 mg/dl (65-105)
[2024-09-21] MEDS: KCL 20 MEQ/D5/0.45% SOD CHL 1,000 ML 150 ML IV CONT ×2 (01:27→08:14)
[2024-09-21 01:37] LABS: Glucose Point of Care 230 mg/dl (65-105)
[2024-09-21 02:41] LABS: Glucose Point of Care 216 mg/dl (65-105)
[2024-09-21 03:29] LABS: Basophils Absolute Auto 0.1 K/mm3 (0.0-0.1); Basophils Percent Auto 0.2 % (0.2-1.2); Hematocrit 43.2 % (42.0-52.0); Hemoglobin 14.7 g/dL (14.0-18.0); Immature Granulocyte Absolute 0.19 K/mm3 (0.00-0.031); Immature Granulocyte Percent A 0.9 % (0-0.5); Lymphocytes Absolute Auto 1.66 K/mm3 (0.9-3.2); Mean Corpuscular Hemoglobin 31.1 pg (26-34); Mean Corpuscular Volume 91.3 fl (80-100); Mean Platelet Volume 9.5 fl (7.4-10.4); Monocytes Absolute Auto 1.6 K/mm3 (0.1-0.6); Monocytes Percent Auto 7.8 % (2.6-8.5); Neutrophils Absolute Auto 17.3 K/mm3 (1.3-6.7); Neutrophils Percent Auto 83.1 % (45.5-73.1); Platelet Count Result 265 k/mm3 (150-375); Red Blood Count 4.73 M/mm3 (4.6-6.20); Red Cell Distribution Width 12.4 % (11.5-14.5); White Blood Count 20.8 K/mm3 (4.5-10.0)
[2024-09-21 03:41] LABS: Alanine Aminotransferase 27 U/L (6-50); Albumin Level 4.4 g/dL (3.5-5.1); Alkaline Phosphatase 85 U/L (38-126); Anion Gap 14 mmol/L (4-12); Aspartate Amino Transferase 27 U/L (17-59); Blood Urea Nitrogen 19 mg/dL (9-20); Calcium 8.7 mg/dL (8.4-10.2); Carbon Dioxide 14 mmol/L (22-30); Chloride 108 mmol/L (98-107); Estimated CRCL calculation 58 ml/min; Estimated Glomerular Filt Rate > 60; Glucose 242 mg/dL (65-110); Magnesium 2.1 mg/dL (1.6-2.3); Potassium 4.8 mmol/L (3.4-5.0); Sodium 136 mmol/L (137-145)
[2024-09-21 05:17] LABS: Glucose Point of Care 225 mg/dl (65-105)
[2024-09-21 06:41] LABS: Glucose Point of Care 227 mg/dl (65-105)
[2024-09-21 08:00] LABS: Glucose Point of Care 253 mg/dl (65-105)
[2024-09-21] MEDS: ENOXAPARIN 40 MG/0.4 ML SYRINGE SUB-Q (08:16)
[2024-09-21] MEDS: PANTOPRAZOLE SODIUM IV 40 MG VIAL IV PUSH (08:16)
[2024-09-21 08:23] LABS: Anion Gap 10 mmol/L (4-12); Blood Urea Nitrogen 17 mg/dL (9-20); Calcium 8.7 mg/dL (8.4-10.2); Carbon Dioxide 19 mmol/L (22-30); Chloride 108 mmol/L (98-107); Estimated CRCL calculation 64 ml/min; Estimated Glomerular Filt Rate > 60; Glucose 243 mg/dL (65-110); Potassium 4.6 mmol/L (3.4-5.0); Sodium 137 mmol/L (137-145)
[2024-09-21] MEDS: LACTATED RINGERS 1,000 ML 75 ML IV CONT ×2 (08:53→22:32)
[2024-09-21] MEDS: INSULIN GLARGINE (*BKC) 100 UNITS/ML 10 UNITS SUB-Q (08:53)
[2024-09-21 09:19] LABS: Lipase 442 U/L (23-300)
--- NOTE | 2024-09-21 09:23 | WPDCNINT ---
Assessment and Plan Assessment and plan (1) Diabetic ketoacidosis: Code(s): E11.10 - Type 2 diabetes mellitus with ketoacidosis without coma Status: Acute Assessment and Plan: Patient presented with elevated blood sugar and beta hydroxybutyrate suggestive of tPA No signs of infection Pt was given IVF bolus and started on infusion Insulin infusion was started and Q1H glucose monitoring is being done Serial labs were done Patient now clinically improved and asymptomatic. Anion gap has closed. I will transition into subcutaneous insulin and start him on a diet drawer hardware worker and dietitian has been consulted (2) Acute kidney injury: Code(s): N17.9 - Acute kidney failure, unspecified Status: Acute Assessment and Plan: Presented with elevated creatinine likely secondary to dehydration and hypovolemia Continue IV fluids and creatinine has improved with IV fluids Monitor urine output electrolytes and creatinine CT scan of the abdomen pulse 2 not show any hydronephrosis stones or obstruction (3) Elevated lipase: Code(s): R74.8 - Abnormal levels of other serum enzymes Status: Acute Assessment and Plan: Mildly elevated lipase. CT abdomen pelvis was unremarkable. Denies any abdominal pain at this time likely secondary to nausea vomiting. Monitor lipase. Advance diet as tolerated (4) Tobacco abuse: Code(s): Z72.0 - Tobacco use Status: Acute Assessment and Plan: Patient was encouraged and counseled to quit smoking (5) Abnormal TSH: Code(s): R79.89 - Other specified abnormal findings of blood chemistry Status: Acute Assessment and Plan: Free T4 level is pending (6) Dehydration: Code(s): E86.0 - Dehydration Status: Acute Assessment and Plan: Switch to LR continue IV fluids for another 24 hours Plan DVT prophylaxis -Lovenox Stress ulcer prophylaxis -Protonix Nutrition -start diabetic diet Code Status - Full Code Transfer out of ICU today Lumber Loader Consult Note Consult date: 09/21/24 Reason for consult: DKA, JERRY HPI: Mike Hooper is a 44 year old male T with past medical history of diabetes mellitus who is on Jardiance and long-acting insulin presented to the emergency department on 09/20 with complaint of nausea, vomiting, and weakness. He has been on Toujeo for quite some time and Jardiance was added to his regimen several months ago. Since that time he has lost about 25 lb u. He states he was feeling fine and was at his baseline until day before yesterday when he started feeling weak. He was tired and did not go to work. Yesterday he started having nausea vomiting and diarrhea. He also had some abdominal pain. No hematochezia melena hematemesis. No fever chest pain shortness a breath. No loss of consciousness dizziness or lightheadedness. All other systems were reviewed and were negative On arrival his Vital signs were temperature 97.8?, pulse 141, blood pressure 108/74, respiratory 18, SpO2 100% room air. Labs are significant for WBC count of 20.7, hemoglobin 17.7, hematocrit 54.8%, chloride 97, serum carbon dioxide < 5, BUN 26, creatinine 2.10, glucose 316, lactic acid 4.0, total protein 9.0, albumin 5.7. Urinalysis was positive for 2+ protein, 3+ glucose, 4+ ketones, 1+ blood, and [address] of the chest, abdomen, and pelvis was without acute findings. VBG with pH of 7.037, pCO2 25.9, HC03 6.8. He received 3 L lactated Ringer's bolus and was started on and insulin drip and was admitted to the ICU for further treatment of DKA. This morning he states he feels significantly better and denies any specific complaints. He states he is thirsty and would like to drink water and eat food. He states that his nausea vomiting abdominal pain has resolved. Patient denies fever, chest pain, shortness of breath, cough, nausea vomiting, abdominal pain,, diarrhea, headache or constipation. All other systems were reviewed and were negative Review of Systems Review of Systems: All systems reviewed & are unremarkable except as noted in HPI and below (HPI) [facility] Past Medical History Medical History Diabetes mellitus type 1.5 diagnosed in late 20s Surgical History Surgical History No history of previous surgery Family History Family History Mother Colon cancer Social History Social History Social History: Surrogate medical decision maker: Paola Hooper, mother. Code status: Full code. Years smoked: 5 Smoking status: Current every day smoker Tobacco type: cigarettes Second hand tobacco smoke exposure: Yes Alcohol intake: current Drinks per week: 1 Substance use type: marijuana Do You Feel Safe in your Home?: Yes Lack of Transportation: No Lack of Food: Never True Current Housing: I Have Housing Concerned About Future Housing: No Difficulty Paying Gas/Electric Bills: No Difficulty Paying for Meds: No Currently Unemployed: No Education: Bachelor's Degree Difficulty w/ Childcare or Family Care: No Additional living arrangements comments: Lives in [place] with spouse. They have 2 teenaged boys. Additional occupation/education comments: [employer]. Spiritual care concerns: No Meds Home Medications and Allergies Home Medications Medication Instructions Recorded Confirmed Type atorvastatin 80 mg tablet 80 mg PO HS 09/20/24 09/20/24 History empagliflozin 25 mg tablet 25 mg PO DAILY 09/20/24 09/20/24 History (Jardiance) insulin glargine U-300 conc 300 10 unit subcut HS 09/20/24 09/20/24 History unit/mL (1.5 mL) subcutaneous pen (Toujeo SoloStar U-300 Insulin) Allergies Allergy/AdvReac Type Severity Reaction Status Date / Time mold Allergy Mild Congested Verified 09/20/24 17:36 Penicillins Allergy Unknown Unknown Verified 09/20/24 17:36 Vital Signs Vital Signs - 24 hr 09/20/24 13:22 09/20/24 15:30 09/20/24 16:20 Temperature 36.6 C Pulse Rate 141 H 120 H 123 H Respiratory Rate 18 24 H 17 Blood Pressure 108/74 123/60 117/72 Pulse Oximetry 100 100 100 Oxygen Delivery Room Air 09/20/24 16:30 09/20/24 17:16 09/20/24 18:00 Temperature Pulse Rate 120 H 121 H 118 H Respiratory Rate 21 H Blood Pressure 124/70 117/77 Pulse Oximetry 100 Oxygen Delivery 09/20/24 18:00 09/20/24 20:00 09/20/24 20:00 Temperature 36.5 C 36.3 C L Pulse Rate 118 H 112 H Respiratory Rate 15 16 Blood Pressure 117/77 123/78 Pulse Oximetry 100 100 Oxygen Delivery Room Air 09/20/24 20:00 09/20/24 22:00 09/20/24 22:00 Temperature Pulse Rate 112 H 110 H 110 H Respiratory Rate 16 Blood Pressure 96/55 L Pulse Oximetry 100 Oxygen Delivery 09/21/24 00:00 09/21/24 00:00 09/21/24 00:00 Temperature 36.8 C Pulse Rate 108 H 109 H Respiratory Rate 16 Blood Pressure 107/66 Pulse Oximetry 100 Oxygen Delivery Room Air 09/21/24 02:00 09/21/24 02:00 09/21/24 04:00 Temperature Pulse Rate 104 H 104 H Respiratory Rate 14 Blood Pressure 108/72 Pulse Oximetry 100 Oxygen Delivery Room Air 09/21/24 04:00 09/21/24 04:00 09/21/24 06:00 Temperature 36.9 C Pulse Rate 106 H 106 H 102 H Respiratory Rate 14 15 Blood Pressure 110/71 115/78 Pulse Oximetry 100 100 Oxygen Delivery 09/21/24 06:00 09/21/24 08:00 Temperature 36.7 C Pulse Rate 102 H 108 H Respiratory Rate 20 Blood Pressure 119/81 Pulse Oximetry 100 Oxygen Delivery Exam Narrative: General: Pt is alert awake and in NAD Lungs/Chest: Trachea central Clear BS B/L, No crackles or wheezing. Cardiac: RRR. Normal S1 S2. No murmurs Circulation: Pedal pulses are intact and symmetrical. Abdomen: Normal bowel sounds.. Soft. NT. ND. Extremities: No clubbing, cyanosis or edema. Warm : Ryan in place Neurologic: Follows commands. Moves all 4 extremities PERRL AO x3 Skin: No Rash HEENT: Dry mucosa Results Labs 09/21/24 03:23 09/21/24 08:03 Labs: Impressions Chest/Abdomen/Pelvis CT 09/20/24 15:12 IMPRESSION: 1. Mild emphysema. Renal Ultrasound 09/20/24 17:08 IMPRESSION: 1. Increased renal parenchymal echogenicity, consistent with nonspecific nephropathy. Short CBC 09/20/24 09/21/24 Range/Units 13:45 03:23 WBC 20.7 H 20.8 H (4.5-10.0) K/mm3 Hgb 17.7 D 14.7 D (14.0-18.0) g/dL Hct 54.8 H 43.2 (42.0-52.0) % Plt Count 313 265 (150-375) k/mm3 [facility] 09/20/24 09/20/24 09/20/24 13:45 18:22 22:37 Sodium 138 138 135 L Potassium 4.7 4.6 4.6 Chloride 97 L 107 108 H Carbon Dioxide < 5 L < 5 L 8 L BUN 26 H 23 H 21 H Creatinine 2.10 H 1.30 1.10 Glucose 316 H 236 H 196 H Calcium 9.9 8.7 8.6 09/21/24 09/21/24 03:23 08:03 Sodium 136 L 137 Potassium 4.8 4.6 Chloride 108 H 108 H Carbon Dioxide 14 L 19 L BUN 19 17 Creatinine 1.10 1.10 Glucose 242 H 243 H Calcium 8.7 8.7 Cardiac Enzymes 09/20/24 Range/Units 18:22 Total Creatine Kinase 72 (55-170) U/L Liver Function 09/20/24 09/21/24 Range/Units 13:45 03:23 Total Bilirubin 1.1 1.0 (0.2-1.3) mg/dL AST 47 27 (17-59) U/L ALT 39 27 (6-50) U/L Alkaline Phosphatase 126 85 (38-126) U/L Albumin 5.7 H 4.4 (3.5-5.1) g/dL Urine 09/20/24 Range/Units 15:18 Urine Color Yellow (Yellow) Urine Appearance Clear (Clear) Urine pH 5.0 (5.0-9.0) Ur Specific [place] 1.025 (1.001-1.035) Urine Protein 2+ H (Negative) mg/dL Urine Glucose (UA) 3+ H (Negative) mg/dL Hospitalist MIPS Advance Care Plan I have confirmed that the patient's Advanced Care Plan is present, code status is documented, or surrogate decision maker is listed in patient medical record.: Yes Medication Reconciliation I have utilized all available resources to obtain, update and review the patients current medications (includes all prescriptions, OTC, herbals, cannabis, and nutritional supplements).: Yes
[2024-09-21 09:39] LABS: Free T4 Free Thyroxine Reflex 1.66 ng/dL (0.78-2.19)
[2024-09-21 10:08] LABS: Glucose Point of Care 206 mg/dl (65-105)
[2024-09-21 11:51] LABS: Glucose Point of Care 243 mg/dl (65-105)
[2024-09-21] MEDS: INSULIN ASPART (*BKC) 100 UNITS/ML SUB-Q ×5 (11:54→22:31)
[2024-09-21 12:09] LABS: Total Triiodothyronine (T3) 0.46 NG/ML (0.97-1.69)
--- NOTE | 2024-09-21 12:45 | PC.NURSE ---
This patient, Mike Hooper, was transferred to room 325 on 09/21/24 at 1245. Personal belongings sent with patient. Report given to VINCENT Rossi. Appropriate documentation sent with patient.
--- NOTE | 2024-09-21 12:55 | PC.NURSE ---
This patient, Mike Hooper, was received from ICU on 09/21/24 at 1255. Patient/family oriented to unit policies and routines
[2024-09-21 16:29] LABS: Glucose Point of Care 219 mg/dl (65-105)
[2024-09-21 18:09] LABS: Anion Gap 8 mmol/L (4-12); Blood Urea Nitrogen 12 mg/dL (9-20); Calcium 8.4 mg/dL (8.4-10.2); Carbon Dioxide 21 mmol/L (22-30); Chloride 104 mmol/L (98-107); Estimated CRCL calculation 70 ml/min; Estimated Glomerular Filt Rate > 60; Glucose 223 mg/dL (65-110); Potassium 3.8 mmol/L (3.4-5.0); Sodium 133 mmol/L (137-145)
[2024-09-21] MEDS: ATORVASTATIN 40 MG TABLET 80 MG PO (21:02)
[2024-09-21 21:12] LABS: Glucose Point of Care 207 mg/dl (65-105)
[2024-09-22 05:16] VITALS: BP 113/69; PULSE 87; RESP 16; TEMP 37.4; O2SAT 100
[2024-09-22 07:08] LABS: Hematocrit 38.5 % (42.0-52.0); Hemoglobin 13.1 g/dL (14.0-18.0); Mean Corpuscular Hemoglobin 30.9 pg (26-34); Mean Corpuscular Volume 90.8 fl (80-100); Mean Platelet Volume 9.9 fl (7.4-10.4); Platelet Count Result 214 k/mm3 (150-375); Red Blood Count 4.24 M/mm3 (4.6-6.20); Red Cell Distribution Width 12.5 % (11.5-14.5); White Blood Count 10.2 K/mm3 (4.5-10.0)
[2024-09-22 07:24] LABS: Alanine Aminotransferase 22 U/L (6-50); Albumin Level 3.6 g/dL (3.5-5.1); Alkaline Phosphatase 77 U/L (38-126); Anion Gap 6 mmol/L (4-12); Aspartate Amino Transferase 25 U/L (17-59); Bilirubin,Total 1.2 mg/dL (0.2-1.3); Blood Urea Nitrogen 11 mg/dL (9-20); Calcium 8.5 mg/dL (8.4-10.2); Carbon Dioxide 24 mmol/L (22-30); Chloride 104 mmol/L (98-107); Estimated CRCL calculation 81 ml/min; Estimated Glomerular Filt Rate > 60; Glucose 159 mg/dL (65-110); Phosphorus 1.8 mg/dL (2.5-4.5); Sodium 134 mmol/L (137-145)
[2024-09-22 07:56] LABS: Glucose Point of Care 166 mg/dl (65-105)
[2024-09-22] MEDS: ENOXAPARIN 40 MG/0.4 ML SYRINGE SUB-Q (08:44)
[2024-09-22] MEDS: INSULIN ASPART (*BKC) 100 UNITS/ML SUB-Q ×5 (08:45→20:06)
[2024-09-22] MEDS: INSULIN GLARGINE (*BKC) 100 UNITS/ML 10 UNITS SUB-Q (08:45)
[2024-09-22] MEDS: PANTOPRAZOLE SODIUM IV 40 MG VIAL IV PUSH (08:46)
[2024-09-22 09:49] VITALS: O2SAT 98
[2024-09-22 10:56] LABS: Phosphorus 1.5 mg/dL (2.5-4.5)
[2024-09-22 11:33] LABS: Glucose Point of Care 333 mg/dl (65-105)
[2024-09-22] MEDS: POTASSIUM/PHOSPHORUS/SODIUM 1.5 GM PACKET 1 PACKET PO ×2 (12:15→17:25)
--- NOTE | 2024-09-22 12:15 | P.PNIM_ITS ---
Progress Note: A&P Assessment and Plan (1) Diabetic ketoacidosis: Code(s): E11.10 - Type 2 diabetes mellitus with ketoacidosis without coma Status: Acute Assessment and Plan: * Patient presented with elevated blood sugar and beta hydroxybutyrate suggestive of tPA * No signs of infection * Pt was given IVF bolus and started on infusion * Insulin infusion was started and Q1H glucose monitoring is being done * Serial labs were done * Patient now clinically improved and asymptomatic. Anion gap has closed. * transitioned to subcutaneous insulin and start him on a diet * tobacco educator and dietitian has been consulted * Increase Glargine 12 units subq daily * Continue SSI low dose with Aspart 2 units subq with meals. * Monitor blood sugars. (2) Acute kidney injury: Code(s): N17.9 - Acute kidney failure, unspecified Status: Acute Assessment and Plan: * Presented with elevated creatinine likely secondary to dehydration and hypovolemia * Continue IV fluids and creatinine has improved with IV fluids * Monitor urine output electrolytes and creatinine * CT scan of the abdomen pulse 2 not show any hydronephrosis stones or obstruction (3) Elevated lipase: Code(s): R74.8 - Abnormal levels of other serum enzymes Status: Acute Assessment and Plan: * Mildly elevated lipase. * CT abdomen pelvis was unremarkable. Denies any abdominal pain at this time likely secondary to nausea vomiting. * Monitor lipase. * Advance diet as tolerated (4) Tobacco abuse: Code(s): Z72.0 - Tobacco use Status: Acute Assessment and Plan: * Patient was encouraged and counseled to quit smoking (5) Hypophosphatemia: Code(s): E83.39 - Other disorders of phosphorus metabolism Status: Acute Assessment and Plan: * Phosphorus level 1.5. * Patient given Phos-Nak pack q 6 hr x 2 doses * Recheck phos in the AM. * Patient starting to eat more food. (6) Abnormal TSH: Code(s): R79.89 - Other specified abnormal findings of blood chemistry Status: Acute Assessment and Plan: * TSH 0.345 * Free T4 1.66 Plan DVT prophylaxis -Lovenox Stress ulcer prophylaxis -Protonix Nutrition -start diabetic diet Code Status - Full Code Transfer out of ICU today Subjective Date/time seen: 09/22/24 12:15 Interval history: Patient lying in bed sleeping when I arrived in room. Patient reports feeling better. Patient reports appetite is improving. Patient denies feeling hot, urine frequency, headache, dizziness, nausea, vomiting, or diarrhea. Review of Systems Review of Systems: All systems reviewed & are unremarkable except as noted in HPI and below Exam Const: General: comfortable and no acute distress Resp: Effort & Inspection: normal respiratory effort Auscultation: clear to auscultation bilaterally Cardio: Rate: regular rate Rhythm: regular rhythm GI: GI Palp: Yes Soft to palpation Auscultation: normal bowel sounds Skin: General skin exam: no rashes or lesions noted Neuro: Speech: normal speech Extrem: General: normal to inspection Psych: Mental Status: mental status grossly normal Affect: normal affect Objective Data Vital Signs Vital Signs: Vital Signs - 24 hr 09/21/24 15:18 09/21/24 20:52 09/22/24 05:16 Temperature 98.6 F 97.6 F 99.4 F Pulse Rate 95 88 87 Respiratory Rate 18 20 16 Blood Pressure 111/65 102/48 L 113/69 Pulse Oximetry 99 100 100 Oxygen Delivery 09/22/24 09:49 Temperature Pulse Rate Respiratory Rate Blood Pressure Pulse Oximetry 98 Oxygen Delivery Room Air Intake/Output Intake/Output: Intake & Output 09/19/24 09/20/24 09/21/24 09/22/24 23:59 23:59 23:59 23:59 Intake Total 3273.5 4340.5 668 Output Total 1250 1175 Balance 2023.5 3165.5 668 Meds/Results Medications: Active Medications Generic Name Dose Route Start Last Admin Trade Name Freq PRN Reason Stop Dose Admin Acetaminophen 650 mg 09/20/24 15:31 Acetaminophen 325 Mg Tablet PO Q4H PRN Mild Pain (1-3) or Fever Atorvastatin Calcium 80 mg 09/20/24 21:00 09/21/24 21:02 Atorvastatin 40 Mg Tablet PO 80 mg HS ANNETTE Administration Dextrose 12.5 gm 09/20/24 14:34 Dextrose 50% 25 Gm/50 Ml Syringe IV PUSH PRN PRN Hypoglycemia Protocol Enoxaparin Sodium 40 mg 09/21/24 09:00 09/22/24 08:44 Enoxaparin 40 Mg/0.4 Ml Syringe SUB-Q 40 mg DAILY ANNETTE Administration Glucagon 1 mg 09/20/24 14:34 Glucagon For Inj 1 Mg Vial IM PRN PRN Hypoglycemia Protocol Glucose 15 gm 09/20/24 14:34 Glucose Oral Gel 15 Gm Of Glucse In 37.5 Gm Tube PO PRN PRN Hypoglycemia Protocol Dextrose 1,000 mls @ 100 mls/hr 09/20/24 14:34 Dextrose 5% 1,000 Ml IVPB PRN PRN Hypoglycemia Protocol Insulin Aspart 2 units 09/21/24 12:00 09/22/24 08:45 Insulin Aspart (*Bkc) 100 Units/Ml SUB-Q 2 units TIDWM ANNETTE Administration Insulin Aspart 2 - 5 units 09/21/24 12:00 09/22/24 10:11 Insulin Aspart (*Bkc) 100 Units/Ml SUB-Q Not Given TIDWM ANNETTE Protocol Insulin Aspart 1 - 2 units 09/21/24 21:00 09/21/24 22:31 Insulin Aspart (*Bkc) 100 Units/Ml SUB-Q 1 units HS ANNETTE Administration Protocol Insulin Glargine 10 units 09/21/24 08:35 09/22/24 08:45 Insulin Glargine (*Bkc) 100 Units/Ml SUB-Q 10 units QAM ANNETTE Administration Ondansetron HCl 4 mg 09/20/24 15:31 09/20/24 15:57 Ondansetron Inj 4 Mg/2 Ml Vial IV PUSH 4 mg Q4H PRN Administration Nausea Pantoprazole Sodium 40 mg 09/21/24 09:00 09/22/24 08:46 Pantoprazole Sodium Iv 40 Mg Vial IV PUSH 40 mg QAM ANNETTE Administration Radiology Results: ITS Impressions Chest/Abdomen/Pelvis CT 09/20/24 15:12 IMPRESSION: 1. Mild emphysema. Renal Ultrasound 09/20/24 17:08 IMPRESSION: 1. Increased renal parenchymal echogenicity, consistent with nonspecific nephropathy. Labs Labs: Laboratory Results - last 24 hr 09/21/24 09/21/24 09/21/24 16:19 17:53 20:55 WBC RBC Hgb Hct MCV MCH MCHC RDW Plt Count MPV Sodium 133 L Potassium 3.8 Chloride 104 Carbon Dioxide 21 L Anion Gap 8 BUN 12 D Creatinine 1.00 Estim Creat Clear Calc 70 Estimated GFR > 60 Glucose 223 H POC Capillary Glucose 219 H 207 H Calcium 8.4 Phosphorus Total Bilirubin AST ALT Alkaline Phosphatase Total Protein Albumin 12/07/24 12/07/24 12/07/24 06:41 07:45 10:26 WBC 10.2 H RBC 4.24 L Hgb 13.1 L Hct 38.5 L MCV 90.8 MCH 30.9 MCHC 34.0 RDW 12.5 Plt Count 214 MPV 9.9 Sodium 134 L Potassium 4.0 Chloride 104 Carbon Dioxide 24 Anion Gap 6 BUN 11 Creatinine 0.90 Estim Creat Clear Calc 81 Estimated GFR > 60 Glucose 159 H POC Capillary Glucose 166 H Calcium 8.5 Phosphorus 1.8 L 1.5 L Total Bilirubin 1.2 AST 25 ALT 22 Alkaline Phosphatase 77 Total Protein 6.0 L Albumin 3.6 09/22/24 11:19 WBC RBC Hgb Hct MCV MCH MCHC RDW Plt Count MPV Sodium Potassium Chloride Carbon Dioxide Anion Gap BUN Creatinine Estim Creat Clear Calc Estimated GFR Glucose POC Capillary Glucose 333 H Calcium Phosphorus Total Bilirubin AST ALT Alkaline Phosphatase Total Protein Albumin Quality VTE Prophylaxis VTE prophylaxis: pharmacologic ordered
[2024-09-22 14:00] VITALS: BP 110/75; PULSE 78; RESP 14; TEMP 37; O2SAT 99
[2024-09-22 17:01] LABS: Glucose Point of Care 142 mg/dl (65-105)
[2024-09-22] MEDS: ATORVASTATIN 40 MG TABLET 80 MG PO (20:12)
[2024-09-22 21:06] LABS: Glucose Point of Care 312 mg/dl (65-105)
[2024-09-22 21:23] VITALS: BP 104/75; PULSE 83; RESP 12; TEMP 36.7; O2SAT 100
[2024-09-23 06:00] VITALS: BP 103/70; PULSE 72; RESP 12; TEMP 36.3; O2SAT 99
[2024-09-23 07:36] LABS: Hematocrit 39.1 % (42.0-52.0); Hemoglobin 13.2 g/dL (14.0-18.0); Mean Corpuscular HGB Conc 33.8 g/dl (32-36); Mean Corpuscular Hemoglobin 30.5 pg (26-34); Mean Corpuscular Volume 90.3 fl (80-100); Mean Platelet Volume 9.8 fl (7.4-10.4); Platelet Count Result 203 k/mm3 (150-375); Red Blood Count 4.33 M/mm3 (4.6-6.20); White Blood Count 5.7 K/mm3 (4.5-10.0)
[2024-09-23 07:48] LABS: Alanine Aminotransferase 19 U/L (6-50); Albumin Level 3.4 g/dL (3.5-5.1); Alkaline Phosphatase 83 U/L (38-126); Anion Gap 6 mmol/L (4-12); Aspartate Amino Transferase 22 U/L (17-59); Bilirubin,Total 1.3 mg/dL (0.2-1.3); Blood Urea Nitrogen 10 mg/dL (9-20); Calcium 8.1 mg/dL (8.4-10.2); Carbon Dioxide 26 mmol/L (22-30); Chloride 98 mmol/L (98-107); Estimated CRCL calculation 110 ml/min; Estimated Glomerular Filt Rate > 60; Glucose 250 mg/dL (65-110); Phosphorus 2.1 mg/dL (2.5-4.5); Potassium 3.7 mmol/L (3.4-5.0); Sodium 130 mmol/L (137-145)
[2024-09-23 08:01] LABS: Glucose Point of Care 273 mg/dl (65-105)
[2024-09-23] MEDS: ENOXAPARIN 40 MG/0.4 ML SYRINGE SUB-Q (09:52)
[2024-09-23] MEDS: INSULIN ASPART (*BKC) 100 UNITS/ML SUB-Q ×6 (09:52→22:14)
[2024-09-23] MEDS: INSULIN GLARGINE (*BKC) 100 UNITS/ML 12 UNITS SUB-Q (09:53)
[2024-09-23] MEDS: POTASSIUM/PHOSPHORUS/SODIUM 1.5 GM PACKET 1 PACKET PO ×2 (09:53→17:46)
[2024-09-23] MEDS: PANTOPRAZOLE SODIUM IV 40 MG VIAL IV PUSH (09:53)
--- NOTE | 2024-09-23 11:18 | P.PNIM_ITS ---
Progress Note: A&P Assessment and Plan (1) Diabetic ketoacidosis: Code(s): E11.10 - Type 2 diabetes mellitus with ketoacidosis without coma Status: Acute Assessment and Plan: * Patient presented with elevated blood sugar and beta hydroxybutyrate suggestive of tPA * No signs of infection * Pt was given IVF bolus and started on infusion * Insulin infusion was started and Q1H glucose monitoring is being done * Serial labs were done * Patient now clinically improved and asymptomatic. Anion gap has closed. * transitioned to subcutaneous insulin and start him on a diet * certified diabetes educator and dietitian has been consulted * Increase Glargine 16 units subq daily * Continue SSI low dose with Aspart 2 units subq with meals. * Monitor blood sugars. (2) Acute kidney injury: Code(s): N17.9 - Acute kidney failure, unspecified Status: Acute Assessment and Plan: * Presented with elevated creatinine likely secondary to dehydration and hypovolemia * Continue IV fluids and creatinine has improved with IV fluids * Monitor urine output electrolytes and creatinine * CT scan of the abdomen pulse 2 not show any hydronephrosis stones or obstruction * 09/23/24 BUN 10, Creatinine 0.70, and GFR >60 (3) Elevated lipase: Code(s): R74.8 - Abnormal levels of other serum enzymes Status: Acute Assessment and Plan: * Mildly elevated lipase. * CT abdomen pelvis was unremarkable. Denies any abdominal pain at this time likely secondary to nausea vomiting. * Monitor lipase. * Advance diet as tolerated (4) Tobacco abuse: Code(s): Z72.0 - Tobacco use Status: Acute Assessment and Plan: * Patient was encouraged and counseled to quit smoking (5) Hypophosphatemia: Code(s): E83.39 - Other disorders of phosphorus metabolism Status: Acute Assessment and Plan: * Phosphorus level 1.5 yesterday, increased to 2.1 today. * Patient given Phos-Nak pack q 6 hr x 2 doses * Recheck phos in the AM. * Patient starting to eat more food. (6) Abnormal TSH: Code(s): R79.89 - Other specified abnormal findings of blood chemistry Status: Acute Assessment and Plan: * TSH 0.345 * Free T4 1.66 Plan DVT prophylaxis -Lovenox Stress ulcer prophylaxis -Protonix Nutrition -start diabetic diet Code Status - Full Code Transfer out of ICU today Subjective Date/time seen: 09/23/24 11:18 Interval history: Patient reports feeling better today. Appetite is fair, patient afraid at times to eat because he does not want his blood sugar to go up. Patient denies pain, shortness of breath, diarrhea, nausea, or vomiting. Review of Systems Review of Systems: All systems reviewed & are unremarkable except as noted in HPI and below Exam Const: General: comfortable and no acute distress Eyes: Sclera: sclerae normal Resp: Effort & Inspection: normal respiratory effort Auscultation: clear to auscultation bilaterally Cardio: Rate: regular rate Rhythm: regular rhythm GI: GI Palp: Yes Soft to palpation Auscultation: normal bowel sounds Neuro: Speech: normal speech Extrem: General: normal to inspection Psych: Mental Status: mental status grossly normal Affect: normal affect Objective Data Vital Signs Vital Signs: Vital Signs - 24 hr 09/22/24 14:00 09/22/24 21:23 09/22/24 20:00 Temperature 98.6 F 98.1 F Pulse Rate 78 83 Respiratory Rate 14 12 Blood Pressure 110/75 104/75 Pulse Oximetry 99 100 Oxygen Delivery Room Air 09/23/24 06:00 Temperature 97.3 F L Pulse Rate 72 Respiratory Rate 12 Blood Pressure 103/70 Pulse Oximetry 99 Oxygen Delivery Intake/Output Intake/Output: Intake & Output 09/20/24 09/21/24 09/22/24 09/23/24 23:59 23:59 23:59 23:59 Intake Total 3273.5 4340.5 1145 275 Output Total 1250 1175 Balance 2023.5 3165.5 1145 275 Meds/Results Medications: Active Medications Generic Name Dose Route Start Last Admin Trade Name Freq PRN Reason Stop Dose Admin Acetaminophen 650 mg 09/20/24 15:31 Acetaminophen 325 Mg Tablet PO Q4H PRN Mild Pain (1-3) or Fever Atorvastatin Calcium 80 mg 09/20/24 21:00 09/22/24 20:12 Atorvastatin 40 Mg Tablet PO 80 mg HS ANNETTE Administration Dextrose 12.5 gm 09/20/24 14:34 Dextrose 50% 25 Gm/50 Ml Syringe IV PUSH PRN PRN Hypoglycemia Protocol Enoxaparin Sodium 40 mg 09/21/24 09:00 09/23/24 09:52 Enoxaparin 40 Mg/0.4 Ml Syringe SUB-Q 40 mg DAILY ANNETTE Administration Glucagon 1 mg 09/20/24 14:34 Glucagon For Inj 1 Mg Vial IM PRN PRN Hypoglycemia Protocol Glucose 15 gm 09/20/24 14:34 Glucose Oral Gel 15 Gm Of Glucse In 37.5 Gm Tube PO PRN PRN Hypoglycemia Protocol Dextrose 1,000 mls @ 100 mls/hr 09/20/24 14:34 Dextrose 5% 1,000 Ml IVPB PRN PRN Hypoglycemia Protocol Insulin Aspart 2 units 09/21/24 12:00 09/23/24 09:52 Insulin Aspart (*Bkc) 100 Units/Ml SUB-Q 2 units TIDWM ANNETTE Administration Insulin Aspart 2 - 5 units 09/21/24 12:00 09/23/24 09:53 Insulin Aspart (*Bkc) 100 Units/Ml SUB-Q 3 units TIDWM ANNETTE Administration Protocol Insulin Aspart 1 - 2 units 09/21/24 21:00 09/22/24 20:06 Insulin Aspart (*Bkc) 100 Units/Ml SUB-Q 2 units HS ANNETTE Administration Protocol Insulin Glargine 12 units 09/23/24 09:00 09/23/24 09:53 Insulin Glargine (*Bkc) 100 Units/Ml SUB-Q 12 units QAM ANNETTE Administration Ondansetron HCl 4 mg 09/20/24 15:31 09/20/24 15:57 Ondansetron Inj 4 Mg/2 Ml Vial IV PUSH 4 mg Q4H PRN Administration Nausea Pantoprazole Sodium 40 mg 09/21/24 09:00 09/23/24 09:53 Pantoprazole Sodium Iv 40 Mg Vial IV PUSH 40 mg QAM ANNETTE Administration Radiology Results: ITS Impressions Chest/Abdomen/Pelvis CT 09/20/24 15:12 IMPRESSION: 1. Mild emphysema. Renal Ultrasound 09/20/24 17:08 IMPRESSION: 1. Increased renal parenchymal echogenicity, consistent with nonspecific nephropathy. Labs Labs: Laboratory Results - last 24 hr 09/22/24 09/22/24 09/22/24 11:19 16:37 19:58 WBC RBC Hgb Hct MCV MCH MCHC RDW Plt Count MPV Sodium Potassium Chloride Carbon Dioxide Anion Gap BUN Creatinine Estim Creat Clear Calc Estimated GFR Glucose POC Capillary Glucose 333 H 142 H 312 H Calcium Phosphorus Total Bilirubin AST ALT Alkaline Phosphatase Total Protein Albumin 09/23/24 09/23/24 07:10 07:49 WBC 5.7 RBC 4.33 L Hgb 13.2 L Hct 39.1 L MCV 90.3 MCH 30.5 MCHC 33.8 RDW 12.0 Plt Count 203 MPV 9.8 Sodium 130 L Potassium 3.7 Chloride 98 Carbon Dioxide 26 Anion Gap 6 BUN 10 Creatinine 0.70 Estim Creat Clear Calc 110 Estimated GFR > 60 Glucose 250 H POC Capillary Glucose 273 H Calcium 8.1 L Phosphorus 2.1 L Total Bilirubin 1.3 AST 22 ALT 19 Alkaline Phosphatase 83 Total Protein 6.0 L Albumin 3.4 L Quality VTE Prophylaxis VTE prophylaxis: pharmacologic ordered
[2024-09-23 11:53] LABS: Glucose Point of Care 274 mg/dl (65-105)
[2024-09-23 14:00] VITALS: BP 108/64; PULSE 75; RESP 16; TEMP 36.8; O2SAT 99
[2024-09-23 17:21] LABS: Glucose Point of Care 190 mg/dl (65-105)
[2024-09-23 21:46] LABS: Glucose Point of Care 356 mg/dl (65-105)
[2024-09-23 22:00] VITALS: BP 102/65; PULSE 88; RESP 16; TEMP 36.4; O2SAT 100
[2024-09-23] MEDS: ATORVASTATIN 40 MG TABLET 80 MG PO (22:14)
[2024-09-24 06:00] VITALS: BP 109/70; PULSE 73; RESP 16; TEMP 36.8; O2SAT 99
[2024-09-24 07:08] LABS: Hematocrit 41.4 % (42.0-52.0); Hemoglobin 14.2 g/dL (14.0-18.0); Mean Corpuscular HGB Conc 34.3 g/dl (32-36); Mean Corpuscular Hemoglobin 30.8 pg (26-34); Mean Corpuscular Volume 89.8 fl (80-100); Mean Platelet Volume 9.9 fl (7.4-10.4); Platelet Count Result 191 k/mm3 (150-375); Red Blood Count 4.61 M/mm3 (4.6-6.20); Red Cell Distribution Width 12.1 % (11.5-14.5); White Blood Count 4.6 K/mm3 (4.5-10.0)
[2024-09-24 07:42] LABS: Glucose Point of Care 276 mg/dl (65-105)
[2024-09-24] MEDS: ENOXAPARIN 40 MG/0.4 ML SYRINGE SUB-Q (08:13)
[2024-09-24] MEDS: INSULIN ASPART (*BKC) 100 UNITS/ML SUB-Q ×4 (08:14→11:43)
[2024-09-24] MEDS: INSULIN GLARGINE (*BKC) 100 UNITS/ML 16 UNITS SUB-Q (08:15)
[2024-09-24 09:47] LABS: Alanine Aminotransferase 18 U/L (6-50); Albumin Level 3.5 g/dL (3.5-5.1); Alkaline Phosphatase 97 U/L (38-126); Anion Gap 7 mmol/L (4-12); Aspartate Amino Transferase 21 U/L (17-59); Bilirubin,Total 1.4 mg/dL (0.2-1.3); Blood Urea Nitrogen 11 mg/dL (9-20); Calcium 8.6 mg/dL (8.4-10.2); Carbon Dioxide 28 mmol/L (22-30); Chloride 96 mmol/L (98-107); Estimated CRCL calculation 97 ml/min; Estimated Glomerular Filt Rate > 60; Glucose 287 mg/dL (65-110); Lipase 106 U/L (23-300); Phosphorus 2.4 mg/dL (2.5-4.5); Sodium 131 mmol/L (137-145)
[2024-09-24] MEDS: POTASSIUM/PHOSPHORUS/SODIUM 1.5 GM PACKET 1 PACKET PO (11:42)
[2024-09-24 11:45] LABS: Glucose Point of Care 296 mg/dl (65-105)
--- NOTE | 2024-09-24 13:48 | P.DS_ITS ---
DS: Admitting Diagnosis Discharge Date 09/24/2024 Admitting Diagnosis Nausea, vomiting, diarrhea DS: Discharge Diagnosis Discharge Diagnosis (1) Diabetic ketoacidosis: Code(s): E11.10 - Type 2 diabetes mellitus with ketoacidosis without coma Status: Acute (2) Diabetes mellitus type 1.5: Code(s): E13.9 - Other specified diabetes mellitus without complications Status: Acute (3) Acute kidney injury: Code(s): N17.9 - Acute kidney failure, unspecified Status: Acute (4) Elevated lipase: Code(s): R74.8 - Abnormal levels of other serum enzymes Status: Acute (5) Hypophosphatemia: Code(s): E83.39 - Other disorders of phosphorus metabolism Status: Acute (6) Abnormal TSH: Code(s): R79.89 - Other specified abnormal findings of blood chemistry Status: Acute (7) Tobacco abuse: Code(s): Z72.0 - Tobacco use Status: Acute DS: Summary Hospital Course Hospital Course: * Patient presented with elevated blood sugar and beta hydroxybutyrate s uggestive of tPA. HgbA1C 11.9%. * No signs of infection * Pt was given IVF bolus and started on infusion * Insulin infusion was started and Q1H glucose monitoring is being done * Serial labs were done * Patient now clinically improved and asymptomatic. Anion gap has closed. * transitioned to subcutaneous insulin and start him on a diet * certified adaptive physical educator and dietitian has been consulted * Mildly elevated lipase. CT abdomen pelvis was unremarkable. Denies any abdominal pain at this time likely secondary to nausea vomiting. Lipase improved from 442>106. Advance diet as tolerated. * JERRY resolved Creatinine improved from 2.1>0.80 * Renal ultrasound FINDINGS: The right kidney measures 11.1 x 4.9 x 6.2 cm. The left kidney measures 10.7 x 5.9 x 5.5 cm. The kidneys demonstrate increased parenchymal echogenicity, consistent with nonspecific nephropathy. There is no hydronephrosis. The bladder is normal. IMPRESSION: 1. Increased renal parenchymal echogenicity, consistent with nonspecific nephropathy. * Phoshate improved to 2.4. Education given to patient. * Urine culture negative. Blood cultures no growth. Time spent discussing smoking cessation with patient: more than 10 minutes Status at Discharge Functional status at discharge: independent ambulation Overall status at discharge: patient is progressing back to baseline Time Spent with Patient Time attestation: Total time spent providing and/or coordinating discharge services: Time spent: Greater than 30 minutes Exam Const: General: comfortable and no acute distress Resp: Effort & Inspection: normal respiratory effort Auscultation: clear to auscultation bilaterally Cardio: Rate: regular rate Rhythm: regular rhythm GI: GI Palp: Yes Soft to palpation Auscultation: normal bowel sounds Skin: General skin exam: no rashes or lesions noted Extrem: General: normal to inspection Psych: Mental Status: mental status grossly normal Affect: normal affect DS: Data Data Completed and Pending Labs on day of discharge: Labs from last 24 hours 09/24/24 09/24/24 09/24/24 11:05 07:32 06:52 WBC 4.6 RBC 4.61 Hgb 14.2 Hct 41.4 L MCV 89.8 MCH 30.8 MCHC 34.3 RDW 12.1 Plt Count 191 MPV 9.9 Sodium 131 L Potassium 4.0 Chloride 96 L Carbon Dioxide 28 Anion Gap 7 BUN 11 Creatinine 0.80 Estim Creat Clear Calc 97 Estimated GFR > 60 Glucose 287 H POC Capillary Glucose 296 H 276 H Calcium 8.6 Phosphorus 2.4 L Total Bilirubin 1.4 H AST 21 ALT 18 Alkaline Phosphatase 97 Total Protein 6.0 L Albumin 3.5 Lipase 106 09/23/24 09/23/24 21:31 17:01 WBC RBC Hgb Hct MCV MCH MCHC RDW Plt Count MPV Sodium Potassium Chloride Carbon Dioxide Anion Gap BUN Creatinine Estim Creat Clear Calc Estimated GFR Glucose POC Capillary Glucose 356 H 190 H Calcium Phosphorus Total Bilirubin AST ALT Alkaline Phosphatase Total Protein Albumin Lipase Preliminary micro results at discharge 09/20/24 18:49 Blood Culture - Preliminary Blood 09/20/24 22:37 Blood Culture - Preliminary Blood Discharge Plan Discharge Attending physician on discharge: Kar Espino Consulting providers: Geo Engle Discharging Clinician: Prema Huang Anticipated Discharge Date/Time: 09/24/24 13:30 Patient Disposition: Home, Self-Care Activity: may shower and as tolerated Diet: diabetic Discharge Instructions: * Monitor blood sugars and weight. * Schedule Gas Charger appointment. * Report to provider any blood sugars over 400. * Stay active and hydrated. Thank you for entrusting [facility] with your healthcare. Patient Instructions: Antibiotic Form, How to Stop Smoking (DC), Acute Kidney Injury (DC), Diabetic Ketoacidosis (DC), Basic Carbohydrate Counting (DC), Meal Planning with the Plate Method (DC), Meal Planning with Diabetes Exchanges (DC), Hypophosphatemia (DC) Stand Alone Forms: General Discharge Information Follow-up/Referrals: Dr. Bin Hoffman [Other] Shelbi Davison MD [Physician] - 1 Week Discharge Medications: New pantoprazole 40 mg Tablet,Delayed Release (Dr/Ec) 40 mg PO QAM Qty: 30 0RF insulin glargine-lixisenatide 100 unit-33 mcg/mL insulin pen 20 unit subcut QAM Qty: 15 0RF insulin lispro 100 unit/mL solution 5 unit subcut BID Qty: 10 0RF insulin lispro 100 unit/mL solution 1 sliding scale dose subcut USEASDIRECTD Qty: 10 0RF Rx Instructions: glucose < 70 mg/dl Follow Hypoglycemia Order glucose 70-200 mg/dl No additional insulin glucose 201-250 mg/dl 2 units sub-Q glucose 251-300 mg/dl 3 units sub-Q glucose 301-350 mg/dl 4 units sub-Q glucose 351-400 mg/dl 5 units sub-Q glucose > 400 mg/dl Call MD Protocol Text *No Correction Dose at Bedtime* (DME) pen needle, diabetic [BD Ultra-Fine Kary Pen Needle] 32 gauge x 5/32 needle Qty: 1 0RF Rx Instructions: May substitute to meet patient needs. Use As Directed (DME) insulin syringe-needle U-100 [BD Veo Insulin Syringe UF] 1/2 mL 31 gauge x 15/64 syringe Qty: 1 0RF Rx Instructions: 0.5 mL syringe for doses up to 50 units. May substitute to meet patient needs. Use As Directed Continued atorvastatin 80 mg tablet 80 mg PO HS Discontinued Jardiance 25 mg tablet 25 mg PO DAILY insulin glargine U-300 conc [Toujeo SoloStar U-300 Insulin] 300 unit/mL (1.5 mL) insulin pen 10 unit SUBCUT HS Other Ambulatory Orders: Diabetes Education Referral (Routine) Timeframe: 1 Day Location: Determined by Patient Ordered By: Prema Huang Date of admission: 09/20/24 17:03 Primary Care Provider: UNKNOWN,DOCTOR Admitting Provider: Kar Espino Attending physician on admission: Kar Espino Condition: Stable Hospitalist MIPS Heart Failure (Exclusion) Patient has history of Heart Transplant or Left Ventricular Assistive Device?: No IF YES, STOP HERE Heart Failure (Qualifier) Patient has current or prior documentation of LVEF less than or equal to 40%, or mod/servere depressed LVSF?: No IF NO, STOP HERE
[2024-09-24 14:00] VITALS: BP 110/74; PULSE 86; RESP 16; TEMP 36.6; O2SAT 100
== END 2024-09-24 14:50 | disposition home or self-care (01) | DRG 639 ==
LOC: ANHED 15:34 → ANHICU 16:00 → ANH3MEDSUR 09-21 13:24
PROVIDERS: Internal Medicine; Physician Assistant; Admitting Provider General Practice; Emergency Provider Preventive Medicine Aerospace Medicine; Visit Provider Nurse Practitioner Family
DX: E13.10 Other specified diabetes mellitus with ketoacidosis without coma (principal); E86.0 Dehydration; R63.4 Abnormal weight loss; E83.39 Other disorders of phosphorus metabolism; F17.210 Nicotine dependence, cigarettes, uncomplicated; Z68.21 Body mass index [BMI] 21.0-21.9, adult
CPT/HCPCS: 36415; 71260; 74177; 76775; 80048; 80053; 81001; 82010; 82550; 82803; 82948; 83036; 83605; 83690; 83735; 84100; 84145; 84439; 84443; 84480; 85025; 85027; 86140; 87040; 87086; 87641; 96361; 96365; 96366; 96375; 99285; A9270; G0378; J1650; J1815; J2405; J2470; J3480; J7030; J7120; Q9967

== ENCOUNTER 2024-11-20 16:36 | Outpatient (CLI) | payer OTHER, SELFPAY ==
--- OUTSIDE RECORDS SUMMARY | 2024-11-20 16:39 | XMS_ITS | Clinical Summary ---
Author Organization [facility] Address [address] [place] [id number] Care Team Providers Care Ring Cutter Lathe Operator Name Role Phone Kirby Carbajal MD Primary Care Prov ider Allergies Active Allergy Reactions Criticality Noted Date Comments Molds & Smuts Eyes Water & Itch,It lizeth,Runny Nose,Shortness of Breath,Sneezing High 06/20/2024 Penicillins Hives 06/20/2024 Medications insulin aspart (NOVOLOG) 100 UNIT/ML injection (VIAL) 7 Active Insulin Pen Needle (B-D UF III MINI PEN NEEDLES) 31G X 5 MM MiscIndications :Type 2 diabetes mellitus without complication, with long-term current use of insulin ([facility] HHS/[facility]) Use with Lantus 10 units at bedtime. 100 each 3 4 Active atorvastatin (LIPITOR) 80 MG tabletIndicatio ns:Type 2 diabetes mellitus without complication, with long-term current use of insulin ([facility] HHS/HCC) Take 1 tablet (80 mg total) by mouth nightly at bedtime. 30 tablet 2 4 Active Insulin Glargine, 1 Unit Dial, 300 UNIT/ML Solution Pen-injectorInd ications:Type 2 diabetes mellitus without complication, with long-term current use of insulin (CMS/HCC HHS/HCC) Inject 10 Units into the skin nightly at bedtime. 1.5 mL 1 4 Active empagliflozin (JARDIANCE) 25 MG tabletIndicatio ns:Type 2 diabetes mellitus without complication, with long-term current use of insulin ([facility]) Take 1 tablet (25 mg total) by mouth daily. 90 tablet 1 4 Active Additional Information Patient not taking.Reported on 09/28/2024 Continuous Glucose Sensor (FREESTYLE MICHAELLE 3 PLUS SENSOR) MiscIndications :Type 2 diabetes mellitus without complication, with long-term current use of insulin ([facility]) 1 Units by Does not apply route every 14 (fourteen) days. 6 each 4 4 Active Continuous Glucose Validation Consultant (FREESTYLE MICHAELLE 3 READER) DeviceIndicatio ns:Type 2 diabetes mellitus without complication, with long-term current use of insulin ([facility]) 1 Units by Does not apply route daily. 1 each 4 Active Active Problems Problem Noted Date Diagnosed Date Mixed hyperlipidemia 08/20/2024 Assessment & Plan (08/20/2024 2:13 PM COMMAND AND CONTROL SYSTEMS INTEGRATOR): Chronic. Uncontrolled. LDL at diagnosis 89. ASCVD risk score of 9.7% . - Last lipid panel: TChol 168, triglycerides 64, HDL 66, LDL 89 - Goal of at least 50% reduction of LDL - Current medication: Lipitor 80 mg p.o. daily - D/w pt importance of reducing carbohydrates and total calories - D/w pt use of 'myfitnesspal' and 'myplate' for assistance in decreasing total caloric intake. - Recommended at least 150 min / week of moderate intensity exercise - Avoidance of regular soda, juices, and alcohol. Cautious of sugar in coffee and teas. -Will repeat lipid panel at next appointment Type 2 diabetes mellitus wit hout complication, with long-term current use of insulin ([facility]) 06/20/2024 Assessment & Plan (09/28/2024 1:18 PM COMMAND AND CONTROL SYSTEMS INTEGRATOR): Chronic. Uncontrolled with hyperglycemia. Last A1c 10.2. Pt does not want to take any medication that causes weight loss. Low Cpeptide. - A1c goal of <7% - Current medications: Insulin glargine 10 units morning + Lispro 5 U BID for breakfast and dinner + SSI with lunch - Denies any current complications with lower extremity neuropathy. Last DM foot exam: 2023, unremarkable. X-rays ruled out bilateral Charcot arthropathies -On high intensity statin - Awaiting discharge summary from [facility] -Up-to-date on CMP and albumin creatinine ratio -Patient not up-to-date on pneumococcal vaccine -Pt will be following with endocrine in the next couple of weeks - Will order Michaelle - D/w pt that he would likely require more insulin. If starting insulin per weight, could consider 30 U of daily insulin. Pt is currently at least 20 U of insulin / day + SSI. Pt would benefit from increasing insulin glargine to 20 U. However, difficult to decide 2/2 to AM insulin. Will be reaching out to clinical pharmacist to assist. Could consider NPH insulin to get long-acting insulin to the PM, to be able to monitor AM sugars and further insulin management. Assessment & Plan (08/20/2024 2:11 PM COMMAND AND CONTROL SYSTEMS INTEGRATOR): Chronic. Uncontrolled with hyperglycemia. Last A1c 10.2. At last appointment discontinued NovoLog - A1c goal of <7% - Current medications: Jardiance 25 mg p.o. daily, insulin glargine 20 units nightly - Denies any current complications with lower extremity neuropathy. Last DM foot exam: 2023, unremarkable. X-rays ruled out bilateral Charcot arthropathies - D/w pt to track sugars 4x a day -On high intensity statin -Discussed with patient potential for starting metformin. However, patient reports that he lost some weight and would like to stay the course until next appointment to repeat A1c. Discussed with patient that his A1c is likely going to still be uncontrolled -Up-to-date on CMP and albumin creatinine ratio -Patient not up-to-date on pneumococcal vaccine -Follow-up in 1 month for A1c check Smoker 06/20/2024 Encounters Date Type Department Care Team Description 09/28/2024 11:40 AM COMMAND AND CONTROL SYSTEMS INTEGRATOR Office Visit [facility] [place] [address], [address] [place] [phone] Kirby Carbajal MD TCM (Pt presents to office for TCM f/u pt discharged 09/21/24 for diabetic ketoacidosis ) 09/28/2024 Travel 09/25/2024 Telephone [facility] [place] [address], [address] [place] [phone] Kirby Carbajal MD [facility] 08/20/2024 1:40 PM COMMAND AND CONTROL SYSTEMS INTEGRATOR Telemedicine [facility] [place] [address], [address] [place] [phone] Kirby Carbajal MD Follow Up (Pt presents to office for DM and blood sugar f/u ) 08/20/2024 Travel from Last 3 Months Immunizations Name Administration Dates Next Due Tdap (Adacel) 06/20/2024 Family History Medical History Relation Comments Asthma Maternal Grandmother Vision loss Mother Relation Status Comments Maternal Grandmother Mother Social History Tobacco Use Types Packs/Day Years Used Date Smoking Tobacco: Some Days Cigarettes 0.5 5 Passive Smoke Exposure: Never Smokeless Tobacco: Never Tobacco Cessation:Ready to Q uit: Yes; Counseling Given: Yes Alcohol Use Standard Drinks/Week Comments Yes 5 (1 standard drink = 0.6 oz pur e alcohol) PHQ-2 Answer Date Recorded Patient Health Questionnaire-2 Score 0 06/20/2024 Sex and Gender Information Value Date Recorded Sex Assigned at Male 06/19/2024 7:56 AM CDT Legal Sex Male 8:24 AM CDT Gender Identity Male 06/19/2024 7:56 AM CDT Sexual Orientation Straight 06/19/2024 7: 56 AM CDT Last Filed Vital Signs Vital Sign Reading Time Taken Comments Blood Pressure 104/68 09/28/2024 11:53 AM COMMAND AND CONTROL SYSTEMS INTEGRATOR Pulse 77 09/28/2024 11:53 AM COMMAND AND CONTROL SYSTEMS INTEGRATOR Temperature 36.7 ??C (98.1 ??F) 09/28/2024 11:[address] Respiratory Rate 18 09/28/2024 11:53 AM COMMAND AND CONTROL SYSTEMS INTEGRATOR Oxygen Saturation 98% 09/28/2024 11:53 AM COMMAND AND CONTROL SYSTEMS INTEGRATOR Inhaled Oxygen Concentration - - Weight 60.9 kg (134 lb 3.2 oz) 09/28/2024 11:53 AM COMMAND AND CONTROL SYSTEMS INTEGRATOR Height 174 cm (5' 8.5 ) 09/28/2024 11:53 AM COMMAND AND CONTROL SYSTEMS INTEGRATOR Body Mass Index 20.11 09/28/2024 11:53 AM COMMAND AND CONTROL SYSTEMS INTEGRATOR Plan of Treatment Health Maintenance Due Date Last Done Comments Annual Physical 01/03/1983 Pneumococcal Vaccine: Pediat rics (0 to 5 Years) and At-Risk Patients (6 to 64 Years) (1 of 2 - PCV) 01/03/1986 Diabetes: Retinopathy Eye Exam 01/03/1998 Hepatitis C 01/03/1998 Hepatitis B Vaccines (1 of 3 - 19+ 3-dose series) 01/03/1999 COVID-19 Vaccine ( - 2023-2 5 season) 2024 Influenza Adult (#1) 2024 Hemoglobin A1C 09/19/2024 06/20/2024 PHQ-2 (Physician [place]) 10/17/2024 06/20/2024 Kidney Health Evaluation 06/20/2025 06/20/2024 Lipid Panel 06/20/2025 06/20/2024 PHQ-2 (Physician [place]) 06/20/2025 06/20/2024 DTaP, Tdap and Td Vaccines ( 2 - Td or Tdap) 06/20/2034 06/20/2024 HPV Vaccines Aged Out No longer eligi ble based on patient's age to complete this topic Meningococcal B Vaccine Aged Out No l onger eligible based on patient's age to complete this topic Meningococcal Vaccine Aged Out No guy jem eligible based on patient's age to complete this topic RSV Immunizations Under 20 Months Aged Out No longer eligible based on patient's age to complete this topic Procedures Procedure Name Priority Date/Time Associated Diagnosis Comments LIPID PANEL Routine 06/20/2024 8:59 AM CDT Type 2 diabetes mellitus without complication, with long-term current use of insulin ([facility]) HEMOGLOBIN, GLYCOSYLATED Routine 06/20/2024 Type 2 diabetes mellitus without complication, with long-term current use of insulin ([facility]) from Last 3 Months or Most Recently Relevant to Health Maintenance Results * LIPID PANEL (06/20/2024 8:59 AM CDT) CHOLESTEROL 168 <200 MG/DL 06/20/2024 10:02 AM CDT [facility] TRIGLYCERIDES 64 <150 MG/DL 06/20/2024 10:02 AM [facility] HDL 66 >40.0 MG/DL 06/20/2024 10:02 AM [facility] LDL (CALCULATED) 89 <100 MG/DL 06/20/20 10:02 AM [facility] NON HDL CHOLESTEROL 102 <130 MG/DL 06/20 10:02 AM [facility] CHOL/HDL RATIO 2.5 0.0 - 4.5 06/20/2024 10:02 AM [facility] VLDL CALCULATION 13 5 - 55 MG/DL 06/20/2024 10:02 AM [facility] LIPID INTERPRETATION 06/20/2024 10:02 AM [facility] Comment: [facility] CONCENSUS REPORT RECOMMENDATIONS: ?ADULT ?CHILD ??LOW RISK: ?CHOLESTEROL ? <200 ? <170 ?TRIGLYCERIDE ?<150 ?--- ?HDL ? >=60 ?--- ?LDL ? <100 ? <110 ??BORDERLINE: ?CHOLESTEROL ? 200-239 ?? 170-199 ?TRIGLYCERIDE ?150-199 ? --- ?HDL ?40-59 ?--- ?LDL ? 100-159 ?? 110-129 ??HIGH RISK: ?CHOLESTEROL ? >=240 ?>=200 ?TRIGLYCERIDE ?>=200 ? --- ?HDL ?<40 ?--- ?LDL ? >=160 ?>=130 06/20/2024 8:59 AM CDT Kirby LOPEZ MD LABORATORY Fi nal Result Performing Organization Address City/[facility] de Phone Number [facility] [address] [place] [address], * HEMOGLOBIN, GLYCOSYLATED (06/20/2024) HGB A1C 10.2 % MG-[facility] VICENTE SCHUSTER 06/20/2024 Kirby LOPEZ MD LABORATORY Fi nal Result Performing Organization Address City/[facility] de Phone Number MG-N VICENTE SCHUSTER [address] [place] [address], from Last 3 Months or Most Recently Relevant to Health Maintenance Insurance [facility] Care Teams Ring Cutter Lathe Operator Relationship Specialty Start Date End Date Dalton LOPEZ, Kirby Tamayo MD [address] [place] [address], [address] [phone] PCP - General FAMILY PRACTICE 06/20/24
--- OUTSIDE RECORDS SUMMARY | 2024-11-20 16:39 | XMS_ITS | Encounter Summary ---
Author Organization [facility] Address [facility] [place] [address] Care Team Providers Care Otolaryngology Teacher Name Role Phone Kirby Carbajal MD Primary Care Prov ider Encounter Details Date Type Department Care Team (Late st Contact Info) Description 08/01/2024 [employer] Message Enc [facility] Family Medicine - [address], [address] [place] [phone] [facility] Provider Follow up visit Social History Tobacco Use Types Packs/Day Years Used Date Smoking Tobacco: Some Days Cigarettes 0.5 5 Passive Smoke Exposure: Never Smokeless Tobacco: Never Alcohol Use Standard Drinks/Week Comments Yes 5 (1 standard drink = 0.6 oz pur e alcohol) PHQ-2 Answer Date Recorded Patient Health Questionnaire-2 Score 0 06/20/2024 Sex and Gender Information Value Date Recorded Sex Assigned at Male 06/19/2024 7:56 AM CDT Legal Sex Male 8:24 AM CDT Gender Identity Male 06/19/2024 7:56 AM CDT Sexual Orientation Straight 06/19/2024 7: 56 AM CDT documented as of this encounter Plan of Treatment Not on file documented as of this encounter Visit Diagnoses Not on filedocumented in this encounter Additional Health Concerns Assessment Noted Time PHQ-9 Depression Total Score: 0 06/20/20 24 8:26 AM CDT documented as of this encounter Care Teams Otolaryngology Teacher Relationship Specialty Start Date End Date Kirby Carbajal MD [address] [address] PCP - General FAMILY PRACTICE 06/20/24 documented as of this encounter
--- OUTSIDE RECORDS SUMMARY | 2024-11-20 16:39 | XMS_ITS | Data Portability ---
Author Organization [facility] ARONChelsea Address [address] [place] [address] Assessment No assessment recorded. Plan of Treatment Reminders Order Date Submit Date Provider Last Modified By Organization Details Last Modified Time Details Appointments None recorded. Lab glucose, fingerstic k, blood 2014 015 [facility] In-Office Order, Internal Use Only DO Not Attach Compendium DO Not Attach Compendium, Do Not Delete/merge, [id number] 16:57:16 glucose, fingerstic k, blood 2015 016 [facility] In-Office Order, Internal Use Only DO Not Attach Compendium DO Not Attach Compendium, Do Not Delete/merge, [id number] 6 16:56:15 glucose, fingerstic k, blood 2016 017 [facility] In-Office Order, Internal Use Only DO Not Attach Compendium DO Not Attach Compendium, Do Not Delete/merge, [id number] 7 14:58:44 HbA1c (hemoglobi n A1c), blood 2016 017 [facility], [facility] [facility], [address], [place], [address], 7 13:01:06 CMP, serum or plasma 2016 017 [facility], [address] [facility], [address], [place], [address], 7 13:01:06 CMP, serum or plasma 2016 017 [facility], [address] [facility], [address], [place], [address], 7 13:01:06 lipid panel, serum 2016 017 [facility], [address] [facility], [address], [place], [address], 4 11:02:18 Referral None recorded. Procedures None recorded. Surgeries None recorded. Imaging None recorded. Medication Orders Humalog Mix 75-25 (U-100) Insulin 100 unit/mL subcutaneo us suspension 2014 015 [facility] [address] [place], [address], 5 15:45:41 Humalog Mix 75-25 (U-100) Insulin 100 unit/mL subcutaneo us suspension 2014 015 [facility] [address] [place], [address], 5 16:57:22 Novolin 70/30 U-100 Insulin 100 unit/mL subcutaneo us suspension 2015 016 [facility] [address] [place], [address], 6 16:56:21 Novolin 70/30 U-100 Insulin 100 unit/mL subcutaneo us suspension 2016 017 [facility] [address] [place], [address], 7 13:01:01 Patient TargetsNo targets recorded. Patient Instructions Encounter Date Encounter Id Patient Instructions Last Modified By Organization Details Last Modified Time 04/20/2017 [id number] hepatitis A vaccine: care instructions [email or web address] Not available 04/20/2017 15:06:09 Reason for Referral None Reported. Results Created Date Observation Date Name Description Value Unit Range Abnormal Flag Note LastModifiedBy Organization Detail LastModifiedTime 11/24/19 17 11/24/2016 gluco gabrielle ochoa rstic k, blood Blood Glucose: mg/dl 267 Not Available In-Off ice Order Internal Use Only DO Not Attach Compendium DO Not Attach Compendium, Do Not Delete/merge, [id number] 11/24/2016 12:25:19 02/04/20 16 02/04/2016 gluco , gabrielle rstic k, blood Blood Glucose: mg/dl 208 Not Available In-Off ice Order Internal Use Only DO Not Attach Compendium DO Not Attach Compendium, Do Not Delete/merge, [id number] 02/04/2016 16:41:18 08/06/20 15 08/06/2015 gluco , gabrielle rstic k, blood Blood Glucose: mg/dl 210 Not Available In-Off ice Order Internal Use Only DO Not Attach Compendium DO Not Attach Compendium, Do Not Delete/merge, [id number] 08/06/2015 16:46:43 06/20/20 24 06/20/2024 MICRO ALB/C REAT RATIO creatinine, urine 138.0 mg/dL 39-259 Not Available [facility] (Lab) [address] [place], [address], 06/20/2024 11:00:14 06/20/20 24 06/20/2024 MICRO ALB/C REAT RATIO microalbumin , urine 2.7 mg/dL <2.0 high Not Available [facility] (Lab) [address] [place], [address], 06/20/2024 11:00:14 06/20/20 24 06/20/2024 MICRO ALB/C REAT RATIO malb/creat ratio 19.6 mg/g <30 Not Available [facility] (Lab) [address] [place], [address], 06/20/2024 11:00:14 06/20/20 24 06/23/2024 C-PEP TIDE C-peptide <0.10 low Refer ence range : 0.80 to 3.85 Unit: ng/mL Test Perfo rmed by Zuleyka Singh [facility] [address] [facility] , [facility] [place], [place] Elaineri emanuel Hooper M.D., Ph.D. , [facility] atori es [phone], CLIA [id number] Not Available [facility] (Lab) One [facility], [place], [address], 06/23/2024 06:14:07 07/24/20 24 xr foot RT [address]V [facility] [place] [address] [facility] [address] [place] [address] EXAMIN ATION: Bilate ral feet ACCESS ION: [id number], [id number] EXAM DATE: 10:28 AM REASON FOR EXAM: Evalua te for chroni c Cedro t arthro patrick Foot pain COMPAR ALYSSA: None TECHNI QUE: 3 views right foot and 3 views left foot FINDIN GS: Right foot: No signif icant soft tissue swelli ng. Joint spaces within normal limits . Tarsal s well aligne d with the metata rsals. No acute fractu re. Left foot: No signif icant soft tissue swelli ng. Tarsal s well aligne d with the metata rsals. No eviden ce of fractu re. No malali gnment . IMPRES TARIK: 1. Unrema rkable feet. Referr ed By: Electr onical ly Signed By: Ha Heath MD on 11:30 AM Interp reted By: Ha Heath MD, 11:29 AM [email or web address] [facility] [address] [facility], [place], [address], 07/24/2024 16:55:59 07/24/20 24 xr foot lt 3V [facility] ONE [facility] [place] [address] [facility] [address] [place] [address] EXAMIN ATION: Bilate ral feet ACCESS ION: [id number], [id number] EXAM DATE: 10:28 AM REASON FOR EXAM: Evalua te for chroni c Cedro t arthro patrick Foot pain COMPAR ALYSSA: None TECHNI QUE: 3 views right foot and 3 views left foot FINDIN GS: Right foot: No signif icant soft tissue swelli ng. Joint spaces within normal limits . Tarsal s well aligne d with the metata rsals. No acute fractu re. Left foot: No signif icant soft tissue swelli ng. Tarsal s well aligne d with the metata rsals. No eviden ce of fractu re. No malali gnment . IMPRES TARIK: 1. Unrema rkable feet. Referr ed By: Guilherme solorzano ly Signed By: Ha Heath MD on 11:30 AM Interp reted By: Ha Heath MD, 11:29 AM [email or web address] [address], [place], [address], 07/24/2024 16:56:00 Result Notes None recorded. Problems Name Problem SNOMED Code Status Onset Date Resolution Date Notes Provider Name and Address Organization Details Recorded Time Diabetes mellitus 70360381 Active Beau Tobar MD Attn: Accounting ,[address] [facility], [place], [address] , [place] - [place] 6 16:56:15 Problem Notes None recorded. Procedures Surgical History None recorded. Imaging Results Imaging Date Name Status LastModified by Organiz ation Details LastModified Time 07/24/2024 xr foot RT 3V completed [email or web address] [address], [place], [address], 07/24/2024 16:55:59 07/24/2024 xr foot lt 3V completed [email or web address] [facility] [address] [facility], [place], [address], 07/24/2024 16:56:00 Procedure Notes None recorded. Medical Equipment None Reported. Allergies Allergen ID Allergen Name Allergen Category Reaction Reaction Severity Criticality Documentation Date Start Date Code Code System Note Provider Name and Address Organization Details Recorded Time 80985 Product containin g penicilli n and antibioti c (product) medicatio n Not available Not available Not available 12/12/2014 27990 05 SNOMED Not Available Not Available Not Available Medications Name Sig Start Date Stop Date Status Note LastModified by Organization Details LastModified Time Humalog Mix 75-25 (U-100) Insulin 100 unit/mL subcutaneous suspension INJECT 20 UNITS SUBCUTANEOU SLY TWICE DAILY active Not Available Not Available No t Available Novolin N NPH U-100 Insulin isophane 100 unit/mL subcutaneous susp active Not Available Not Available Not Available Humulin R Regular U-100 Insulin 100 unit/mL injection solution Take 20 units twice a day by injection route as directed for 30 days. 2016 active Not Available Not Available Not Avai lable Humulin 70/30 U-100 Insulin 100 unit/mL subcutaneous suspension INJECT 20 UNITS SUBCUTANEOU SLY TWICE DAILY DIRECTED 2017 active Not Available Not Available Not Avai lable BD Insulin Syringe Ultra-Fine 0.3 mL 31 gauge x 15/64 active Not Available Not Available Not Available BD Insulin Syringe Ultra-Fine 1/2 mL 31 gauge x 15/64 USE 1 SYRINGE TWICE DAILY (NEED APPOINTMENT FOR FURTHER REFILLS) 2017 active Not Available Not Available Not Avai lable BD Insulin Syringe Ultra-Fine (half unit) 0.3 mL 31 gauge x 15/64 active Not Available Not Available Not Available BD Insulin Syringe Ultra-Fine 0.5 mL 31 gauge x 5/16 use one syringe twice daily active Not Available Not Available Not Available Vitals Date Recorded Body weight Oxygen saturation Oxygen saturation in Arterial blood by Pulse oximetry Body height Body mass index (BMI) Body temperature Heart rate Systolic blood pressure Diastolic blood pressure Provider Name and Address Organization Details Last Updated DateTime 5 89337.4 8602 g 99 % 99 % 177.8 cm 20.9 kg/m2 98.8 [degF] 100 /min 88 mm[Hg] 60 mm[Hg] Kuldeep Hope MA [facility] 5 16:46:42 Date Recorded Heart rate Body mass index (BMI) Body height Oxygen saturation Oxygen saturation in Arterial blood by Pulse oximetry Body temperature Body weight Systolic blood pressure Diastolic blood pressure Provider Name and Address Organization Details Last Updated DateTime 6 83 /min 21.5 kg/m2 177.8 cm 100 % 100 % 98.8 [degF] 98272.1 36535 g 110 mm[Hg] 60 mm[Hg] Kuldeep Hope MA [facility] 6 16:41:18 Date Recorded Respiratory rate Body weight Body temperature Body height Body mass index (BMI) Heart rate Systolic blood pressure Diastolic blood pressure Provider Name and Address Organization Details Last Updated DateTime 5 16 /min 19923.1 17169 g 98.8 [degF] 177.8 cm 21.5 kg/m2 74 /min 124 mm[Hg] 72 mm[Hg] January [facility] 5 15:37:04 Date Recorded Body height Body weight Body mass index (BMI) Body temperature Oxygen saturation Oxygen saturation in Arterial blood by Pulse oximetry Heart rate Systolic blood pressure Diastolic blood pressure Provider Name and Address Organization Details Last Updated DateTime 7 177.8 cm 21488.1 4 g 21.5 kg/m2 98 [degF] 98 % 98 % 69 /min 96 mm[Hg] 56 mm[Hg] Kuldeep Hope MA [facility] 7 12:20:26 Date Recorded Body height Body mass index (BMI) Body weight Heart rate Body temperature Oxygen saturation Oxygen saturation in Arterial blood by Pulse oximetry Systolic blood pressure Diastolic blood pressure Provider Name and Address Organization Details Last Updated DateTime 7 177.8 cm 20.6 kg/m2 81504.5 8 g 73 /min 98 [degF] 98 % 98 % 104 mm[Hg] 60 mm[Hg] Paola Woodwardver [place] [facility] 7 12:47:10 Social History Question Answer Notes LastModified by Organizat ion Details LastModified Time Tobacco Smoking Status Never Smoker January [facility], [place] - [facility] 12/12/2014 15:37:04 What Is Your Level Of Alcohol Consumption? Occasional asavala Information not available 12/12/2014 How Much Tobacco Do You Smoke? No Information not available 04/20/2017 How Many Years Have You Smoked Tobacco? 0 Information not available 04/20/2017 Sex: Unknown Functional Status None recorded. Mental Status None recorded. Family History Relationship Description Onset Age of this Age Resolved Age Notes LastModified by Organization Details LastModified Time Mother Asthma asavala Not available 15:37:04 Medical History Condition Response Diabetes Y Asthma Y Allergies Y Immunizations Vaccine Type Date Status Note Provider Nam e and Address Organization Details Recorded Time Hep A, adult 04/20/2017 completed Not Available [facility] 11/03/2019 02:33:33 Past Encounters Encounter ID Performer Location Encounter Start Date Encounter Closed Date Diagnosis/Indication Diagnosis SNOMED-CT Code Diagnosis ICD10 Code Diagnosis Note [id number] [facility] (Adult Med) [address] [place] [address] 29362-268 0 12/12/2014 15:22:18 12/12/2014 15:46:19 Diabetes mellitus [id number] Beau Tobar MD [facility] (Adult Med) [address] [place] [address] 74504-484 0 08/06/2015 16:22:10 08/06/2015 16:58:12 Diabetes mellitus 80472059 E13.65 [id number] Nereidacarl Javid [facility] (Adult Med) [address] [place] [address] 63203-213 0 02/04/2016 15:52:43 02/04/2016 16:56:37 Diabetes mellitus 11266104 E13.65 [id number] MD [facility] (Adult Med) [address] [place] [address] [id number] 0 11/24/2016 11:53:54 11/24/2016 13:06:47 Diabetes mellitus 34995186 E13.65 [id number] Beau Tobar MD [facility] (Adult Med) [address] [place] [address] 04/20/2017 12:21:07 04/21/2017 12:53:04 Diabetes mellitus 72984940 E13.65 On diabetic diet and Novolin 70/30. Adult [facility] th examination 409860605 Z00.00 First week of 2018 for the final booster. He may return to regular duty on 04/21/2017 , so far he tolerated the shot well. Health Concerns Section Related Observation LastModified by Organization Detai ls LastModified Time None Recorded Concern Status LastModified by Organization Details LastModified Time None Recorded Advance Directives Directive None Recorded Payers Encounter Date Sequence Insurance Name Policy Number Policy Love Covered Member ID Love Member ID Guarantor Name 12/12/2014 1 [facility] [employer] (PP[employer]) Mike Hooper [id number] Mike Hooper 08/06/2015 1 [facility] [employer] (PP[employer]) Mike Hooper [id number] Mike Hooper 02/04/2016 1 [facility] [employer] (PPO) Mike Hooper [id number] Mike Hooper 11/24/2016 1 [facility] [id number] Mike Hooper [id number] Mike Hooper 04/20/2017 1 [facility] [id number] Mike Hooper [id number] Mike Hooper Notes Date Note Type Note Provider Name and Address Organization Details Recorded Time 08/06/2015 text/html 1. Check up.2. refills of medications., he dose want flu shot., has some trouble to get refills of insulin needles. Beau Tobar MD Attn: Accounting,[address] [facility], [place], [address], [facility] - SI 08/06/2015 16:57:37 02/04/2016 text/html F/U for sugar diabetes. Beau Tobar MD Attn: Accounting,[address] [facility] [facility], [place], [address], [facility] - SI 02/04/2016 16:56:17 04/20/2017 text/html He had 3 series of hepatitis S shots in 2006, also menengoccal immunization vaccine in 2006. His work place requires him to have hepatitis A vaccination. Still om novolin 70/30 shot 20 units twice /day. Beau Tobar MD Attn: Accounting,[address] [facility], [place], [address], [place] - [facility] 04/20/2017 13:35:16
[2024-11-20 18:44] LABS: Creatinine Urine 86.2 mg/dL
[2024-11-20 18:46] LABS: MALB Creatinine Ratio 18.8 mg/g (0-30); Microalbumin Urine Random 16.2 mg/L (0-16.7)
== END 2024-11-20 16:37 | disposition home or self-care (01) ==
LOC: ANHLAB 16:37
PROVIDERS: Visit Provider Internal Medicine
DX: E13.10 Other specified diabetes mellitus with ketoacidosis without coma (principal)
CPT/HCPCS: 82043

== ENCOUNTER 2024-12-04 16:00 | Outpatient (RCR) | payer OTHER, SELFPAY | END 2025-01-21 10:09 | disposition home or self-care (01) | LOC: ANHDMC 16:00 | PROVIDERS: Visit Provider Internal Medicine | DX: E11.65 Type 2 diabetes mellitus with hyperglycemia (principal); Z71.89 Other specified counseling | CPT/HCPCS: G0108 ==

== ENCOUNTER 2025-04-22 06:41 | Outpatient (CLI) | payer OTHER, SELFPAY ==
--- OUTSIDE RECORDS SUMMARY | 2025-04-22 06:43 | XMS_ITS | Encounter Summary ---
Author Organization [facility] Address [facility] [place] [address] Care Team Providers Care Test Technician Name Role Phone Kirby Carbajal MD Primary Care Prov ider Encounter Details Date Type Department Care Team (Late st Contact Info) Description 08/01/2024 Prixtel Message Enc [facility] Family Medicine - [address], [address] [place] [address] [facility] Provider Follow up visit Social [...] documented as of this encounter Care Teams Test Technician Relationship Specialty Start Date End Date Kirby Carbajal MD [address] [address] PCP - General FAMILY PRACTICE 06/20/24 documented as of this encounter
--- OUTSIDE RECORDS SUMMARY | 2025-04-22 06:43 | XMS_ITS | Clinical Summary ---
Author Organization [facility] Address [address] [place] [address] Care Team Providers Care Smooth Stucco Resurfacer Name Role Phone Kirby Carbajal MD Primary [...] complication, with long-term current use of insulin ([facility] HHS/[facility]) Use with Lantus 10 units at bedtime. 100 each 3 4 Active atorvastatin (LIPITOR) 80 MG tabletIndicatio ns:Type 2 diabetes mellitus without complication, with long-term current use of insulin ([facility] HHS/HCC) Take 1 tablet (80 [...] complication, with long-term current use of insulin ([facility]) Take 1 tablet (25 mg total) by mouth daily. 90 tablet 1 4 Active Additional Information Patient not taking.Reported on 09/28/2024 Continuous Glucose Sensor (FREESTYLE MICHAELLE 3 PLUS SENSOR) MiscIndications :Type 2 diabetes mellitus without complication, with long-term current use of insulin ([facility]) 1 Units by Does not apply route every 14 (fourteen) days. 6 each 4 4 Active Continuous Glucose Asphalt Tile Floor Layer (FREESTYLE MICHAELLE 3 READER) DeviceIndicatio ns:Type 2 diabetes mellitus without complication, with long-term current use of insulin ([facility]) 1 Units by Does not apply route daily. 1 each 4 Active Active Problems Problem Noted Date Diagnosed Date Mixed hyperlipidemia 08/20/2024 Assessment & Plan (08/20/2024 2:13 PM RESIDENTIAL TREATMENT SPECIALIST): Chronic. Uncontrolled. LDL at diagnosis 89. ASCVD [...] complication, with long-term current use of insulin ([facility]) 06/20/2024 Assessment & Plan (09/28/2024 1:18 PM RESIDENTIAL TREATMENT SPECIALIST): Chronic. Uncontrolled with hyperglycemia. Last A1c 10.2. [...] intensity statin - Awaiting discharge summary from [facility] -Up-to-date on CMP and albumin creatinine ratio [...] management. Assessment & Plan (08/20/2024 2:11 PM RESIDENTIAL TREATMENT SPECIALIST): Chronic. Uncontrolled with hyperglycemia. Last A1c 10.2. [...] 1 month for A1c check Smoker 06/20/2024 Immunizations Immunization Administration Dates Next Due Tdap (Adacel) 06/20/2024 [...] Comments Blood Pressure 104/68 09/28/2024 11:53 AM RESIDENTIAL TREATMENT SPECIALIST Pulse 77 09/28/2024 11:53 AM RESIDENTIAL TREATMENT SPECIALIST Temperature 36.7 C (98.1 F) 09/28/2024 11:53 AM RESIDENTIAL TREATMENT SPECIALIST Respiratory Rate 18 09/28/2024 11:53 AM RESIDENTIAL TREATMENT SPECIALIST Oxygen Saturation 98% 09/28/2024 11:53 AM RESIDENTIAL TREATMENT SPECIALIST Inhaled Oxygen Concentration - - Weight 60.9 kg (134 lb 3.2 oz) 09/28/2024 11:53 AM RESIDENTIAL TREATMENT SPECIALIST Height 174 cm (5' 8.5) 09/28/2024 11:53 AM RESIDENTIAL TREATMENT SPECIALIST Body Mass Index 20.11 09/28/2024 11:53 AM RESIDENTIAL TREATMENT SPECIALIST Plan of Treatment Health Maintenance Due Date Last Done Comments Colorectal Cancer Screening Colonoscopy (10 Years) 1980 Annual Physical 01/03/1983 Diabetes: Retinopathy Eye Exam 01/03/1998 Hepatitis C 01/03/1998 Hepatitis B Vaccines (1 of 3 - 19+ 3-dose series) 01/03/1999 Pneumococcal Vaccine: Pediat rics (0 to 5 Years) and At-Risk Patients (6 to 49 Years) (1 of 2 - PCV) 01/03/1999 COVID-19 Vaccine (2023-2 5 season) 2024 Hemoglobin A1C 09/19/2024 06/20/2024 PHQ-2 (Physician [place]) 10/17/2024 06/20/2024 Kidney Health Evaluation 06/20/2025 06/20/2024 Lipid Panel 06/20/2025 06/20/2024 DTaP, Tdap and Td Vaccines [...] complication, with long-term current use of insulin HEMOGLOBIN, GLYCOSYLATED Routine 06/20/2024 Type 2 diabetes mellitus without complication, with long-term current use of insulin from Last 3 Months or Most Recently Relevant to Health Maintenance Results * LIPID PANEL (06/20/2024 8:59 AM CDT) CHOLESTEROL 168 <200 MG/DL 06/20/2024 10:02 AM [facility] TRIGLYCERIDES 64 <150 MG/DL 06/20/2024 10:02 AM T [facility] HDL 66 >40.0 MG/DL 06/20/2024 10:02 AM [facility] LDL (CALCULATED) 89 <100 MG/DL 06/20/20 10:02 AM T [facility] NON HDL CHOLESTEROL 102 <130 MG/DL 06/20 10:02 AM [facility] CHOL/HDL RATIO 2.5 0.0 - 4.5 06/20/2024 10:02 AM [facility] VLDL CALCULATION 13 5 - 55 MG/DL 06/20/2024 10:02 AM [facility] LIPID INTERPRETATION 06/20/2024 10:02 AM [facility] Comment: [facility] REPORT RECOMMENDATIONS: ADULT CHILD LOW RISK: CHOLESTEROL <200 <170 TRIGLYCERIDE <150 --- HDL >=60 --- LDL <100 <110 BORDERLINE: CHOLESTEROL 200-239 170-199 TRIGLYCERIDE 150-199 --- HDL 40-59 --- LDL 100-159 110-129 HIGH RISK: CHOLESTEROL >=240 >=200 TRIGLYCERIDE >=200 --- HDL <40 --- LDL >=160 >=130 06/20/2024 8:59 AM CDT Kirby LOPEZ MD LABORATORY Fi nal Result [facility] [address] [place] [address], * HEMOGLOBIN, GLYCOSYLATED (06/20/2024) HGB A1C 10.2 % MG-N PHUC LANG OFRANK 06/20/2024 Kirby LOPEZ MD LABORATORY Fi nal Result Performing Organization Address City[facility] Co de Phone Number MG-N Flora SCHUSTERWILL [facility] [address], from Last 3 Months or Most Recently Relevant to Health Maintenance Insurance [facility] Care Teams Smooth Stucco Resurfacer Relationship Specialty Start Date End Date Kirby Carbajal MD [address] [facility] [facility] [address] [place] [address] PCP - General FAMILY PRACTICE 9/4/24
--- OUTSIDE RECORDS SUMMARY | 2025-04-22 06:43 | XMS_ITS | Data Portability ---
Author Organization Chelsea [facility]AME[facility] Address [address] [place] [address] Assessment No assessment recorded. Plan of Treatment Reminders Order Date Submit Date Provider Last Modified By Organization Details Last Modified Time Details Appointments None recorded. Lab glucose, fingerstic k, blood 2016 017 [facility] In-Office Order, Internal Use Only DO Not Attach Compendium DO Not Attach Compendium, Do Not Delete/merge, [id number] 7 14:58:44 HbA1c (hemoglobi n A1c), blood 2016 017 [facility], [address], [address], [place], [address], 7 13:01:06 CMP, serum or plasma 2016 017 [facility], [address], [address], [place], [address], 7 13:01:06 CMP, serum or plasma 2016 017 [facility], [address], [place], [address], 7 13:01:06 lipid panel, serum 2016 017 [facility], [address], [address], [place], [address], 4 11:02:18 glucose, fingerstic k, blood 2015 016 [facility] In-Office Order, Internal Use Only DO Not Attach Compendium DO Not Attach Compendium, Do Not Delete/merge, [id number] 6 16:56:15 glucose, fingerstic k, blood 2014 015 [facility] In-Office Order, Internal Use Only DO Not Attach Compendium DO Not Attach Compendium, Do Not Delete/merge, [id number] 5 16:57:16 Referral None recorded. Procedures None recorded. Surgeries None recorded. Imaging None recorded. Medication Orders Novolin 70/30 U-100 Insulin 100 unit/mL subcutaneo us suspension 2016 017 [facility] [place], [address], 7 13:01:01 Novolin 70/30 U-100 Insulin 100 unit/mL subcutaneo us suspension 2015 016 [facility] [place], [address], 6 16:56:21 Humalog Mix 75-25 (U-100) Insulin 100 unit/mL subcutaneo us suspension 2014 015 [facility] [place], [address], 5 16:57:22 Humalog Mix 75-25 (U-100) Insulin 100 unit/mL subcutaneo us suspension 2014 015 [facility] [place], [address], 5 15:45:41 Patient TargetsNo targets recorded. Patient Instructions Encounter Date Encounter Id Patient Instructions Last Modified By Organization Details Last Modified Time 04/20/2017 [id number] hepatitis A vaccine: care instructions Not available 04/20/2017 15:06:09 Reason for Referral None Reported. Results Created Date Observation Date Name Description Value Unit Range Abnormal Flag Note LastModifiedBy Organization Detail LastModifiedTime 11/24/19 17 11/24/2016 gluco gabrielle ochoa rstic k, blood Blood Glucose: mg/dl 267 Not Available In-Off ice Order Internal Use Only DO Not Attach Compendium DO Not Attach Compendium, Do Not Delete/merge, [id number] 11/24/2016 12:25:19 02/04/20 16 02/04/2016 gluco gabrielle ochoa rstic k, blood Blood Glucose: mg/dl 208 Not Available In-Off ice Order Internal Use Only DO Not Attach Compendium DO Not Attach Compendium, Do Not Delete/merge, [id number] 02/04/2016 16:41:18 08/06/20 15 08/06/2015 gluco gabrielle ochoa rstic k, blood Blood Glucose: mg/dl 210 Not Available In-Off ice Order Internal Use Only DO Not Attach Compendium DO Not Attach Compendium, Do Not Delete/merge, [id number] 08/06/2015 16:46:43 06/20/20 24 06/20/2024 MICRO ALB/C REAT RATIO creatinine, urine 138.0 mg/dL 39-259 Not Available [facility] (Lab) [place], [address], 06/20/2024 11:00:14 06/20/20 24 06/20/2024 MICRO ALB/C REAT RATIO microalbumin , urine 2.7 mg/dL <2.0 high Not Available [facility] (Lab) [place], [address], 06/20/2024 11:00:14 06/20/20 24 06/20/2024 MICRO ALB/C REAT RATIO malb/creat ratio 19.6 mg/g <30 Not Available [facility] (Lab) [place], [address], 06/20/2024 11:00:14 06/20/20 24 06/23/2024 C-PEP TIDE C-peptide <0.10 low Refer ence range : 0.80 to 3.85 Unit: ng/mL Test Perfo rmed by Zuleyka Singh, [facility], [address] [facility] , Zuleyka roper, [place] Patri emanuel Hooper M.D., Ph.D. , [facility] , CLIA [id number] Not Available [facility] (Lab) [address] [facility], [place], [address], 06/23/2024 06:14:07 07/24/20 24 xr foot RT [facility] [place] [address] [facility] [address] [place] [address] EXAMIN ATION: Bilate ral feet ACCESS ION: [id number], [id number] EXAM DATE: 10:28 AM REASON FOR EXAM: Evalua te for chroni c [place] t arthro patrick Foot pain COMPAR ALYSSA: [...] Unrema rkable feet. Referr ed By: Guilherme onical ly Signed By: Ha Heath MD on 11:30 AM Interp reted By: Ha Heath MD, 11:29 AM [email or web address] [facility] [address] [facility], [place], [address], 07/24/2024 16:55:59 07/24/20 24 xr foot lt [address]V [facility] [place] [address] [facility] [address] [place] [address] EXAMIN ATION: Bilate ral feet ACCESS ION: [id number], [id number] EXAM DATE: 10:28 AM REASON FOR EXAM: Evalua te for chroni c [place] t arthro patrick Foot pain COMPAR ALYSSA: [...] By: Ha Heath MD, 11:29 AM [email or web address] [facility] [address] [facility], [place], [address], 07/24/2024 16:56:00 Result Notes None recorded. Problems Name Problem SNOMED Code Status Onset Date Resolution Date Notes Provider Name and Address Organization Details Recorded Time Diabetes mellitus [id number] Active Beau Tobar MD Attn: Accounting ,[address] [facility], [place], [address] , [facility] 6 16:56:15 Problem Notes None recorded. Medical Equipment None Reported. Allergies Allergen ID Allergen Name Allergen Category Reaction Reaction Severity Criticality Documentation Date Start Date Code Code System Note Provider Name and Address Organization Details Recorded Time 79379 Product containin g penicilli n (product) medicatio n Not available Not available Not available 12/12/2014 14468 8001 SNOMED January Jose ABRAN [place], [place] - [place] 5 15:37:04 Medications Name Sig Start Date Stop Date [...] Available Not Available Vitals Date Recorded Body height Body weight Body mass index (BMI) Body temperature Oxygen saturation Oxygen saturation in Arterial blood by Pulse oximetry Heart rate Systolic And Diastolic Provider Name and Address Organization Details Last Updated DateTime 7 177.8 cm 94923.1 4 g 21.5 kg/m2 98 [degF] 98 % 98 % 69 /min 96/56 mm[Hg] Kuldeep Hope [place] - [facility] 7 12:20:26 Date Recorded Respiratory rate Body weight Body temperature Body height Body mass index (BMI) Heart rate Systolic And Diastolic Provider Name and Address Organization Details Last Updated DateTime 5 16 /min 34293.1 35077 g 98.8 [degF] 177.8 cm 21.5 kg/m2 74 /min 124/72 mm[Hg] Dawn Garcia MA [facility] 5 15:37:04 Date Recorded Heart rate Body mass index (BMI) Body height Oxygen saturation Oxygen saturation in Arterial blood by Pulse oximetry Body temperature Body weight Systolic And Diastolic Provider Name and Address Organization Details Last Updated DateTime 6 83 /min 21.5 kg/m2 177.8 cm 100 % 100 % 98.8 [degF] 41021.1 60840 g 110/60 mm[Hg] Kuldeep Hope MA [facility] 6 16:41:18 Date Recorded Body height Body mass index (BMI) Body weight Heart rate Body temperature Oxygen saturation Oxygen saturation in Arterial blood by Pulse oximetry Systolic And Diastolic Provider Name and Address Organization Details Last Updated DateTime 7 177.8 cm 20.6 kg/m2 41212.5 8 g 73 /min 98 [degF] 98 % 98 % 104/60 mm[Hg] Paola Linder MA [facility] 7 12:47:10 Date Recorded Body weight Oxygen saturation Oxygen saturation in Arterial blood by Pulse oximetry Body height Body mass index (BMI) Body temperature Heart rate Systolic And Diastolic Provider Name and Address Organization Details Last Updated DateTime 5 58788.4 8602 g 99 % 99 % 177.8 cm 20.9 kg/m2 98.8 [degF] 100 /min 88/60 mm[Hg] Kuldeep Hope MA [facility] 5 16:46:42 Social History Question Answer Notes LastModified by Meetapp Details LastModified Time Tobacco Smoking Status Never [facility]oker [facility] 12/12/2014 15:37:04 How Much Tobacco Do You Smoke? No Information not available 04/20/2017 How Many Years Have You Smoked Tobacco? 0 Information not available 04/20/2017 Sex: Unknown Functional Status Question Answer Note LastModified by Meetapp Details LastModified Time What is your level of alcohol consumption? Occasional asavala Information not available 12/12/2014 Mental Status None recorded. Family History Relationship [...] SNOMED-CT Code Diagnosis ICD10 Code Diagnosis Note [id number] [facility] [address] [place] [phone] 12/12/2014 15:22:18 12/12/2014 15:46:19 Diabetes mellitus [id number] Beau Tobar MD [facility] (Adult Med) [address] [place] [phone] 08/06/2015 16:22:10 08/06/2015 16:58:12 Diabetes mellitus 61210344 E13.65 [id number] Beau Tobar MD [facility] (Adult Med) [address] [place] [phone] 02/04/2016 15:52:43 02/04/2016 16:56:37 Diabetes mellitus 24832971 E13.65 [id number] Beau Tobar MD [facility] (Adult Med) [address] [place] [phone] 11/24/2016 11:53:54 11/24/2016 13:06:47 Diabetes mellitus 52224350 E13.65 [id number] [facility] [address] [place] [phone] 04/20/2017 12:21:07 04/21/2017 12:53:04 Diabetes mellitus 97903140 E13.65 On diabetic diet and Novolin 70/30. Adult [facility] th examination 468490180 Z00.00 First week of 2018 for the final booster. He may return to regular duty on 04/21/2017 , so far he tolerated the shot well. Health Concerns Section Related Observation LastModified by Organization Detai ls LastModified Time None Recorded Concern Status LastModified by Organization Details LastModified Time None Recorded Advance Directives Directive None Recorded Payers Insurance Date Sequence Insurance Name Policy Number Policy Love Covered Member ID Love Member ID Guarantor Name 11/24/2016 1 [facility] [employer] (PP[employer]) Mike Hooper [id number] Mike Hooper 05/22/2017 1 [employer] [id number] Mike Hooper [id number] Mike Hooper Notes Date Note Type Note Provider Name and Address Organization Details Recorded Time 08/06/2015 text/html 1. Check up.2. refills of medications., he dose want flu shot., has some trouble to get refills of insulin needles. Beau Tobar MD Attn: Accounting,[address] [facility], [place], [address], [facility] 08/06/2015 16:57:37 02/04/2016 text/html F/U for sugar diabetes. Beau Tobar MD Attn: Accounting[address] [place], [address], [facility] 02/04/2016 16:56:17 04/20/2017 text/html He had 3 series of hepatitis S shots in 2006, also menengoccal immunization vaccine in 2006. His work place requires him to have hepatitis A vaccination. Still om novolin 70/30 shot 20 units twice /day. Beau Tobar MD Attn: Accounting,[address] [place], [address], [facility] 04/20/2017 13:35:16
[2025-04-22 07:18] LABS: Alanine Aminotransferase 16 U/L (6-50); Albumin Level 4.2 g/dL (3.5-5.1); Alkaline Phosphatase 80 U/L (38-126); Anion Gap 7 mmol/L (4-12); Aspartate Amino Transferase 30 U/L (17-59); Bilirubin,Total 0.5 mg/dL (0.2-1.3); Blood Urea Nitrogen 18 mg/dL (9-20); Calcium 9.2 mg/dL (8.4-10.2); Carbon Dioxide 28 mmol/L (22-30); Chloride 104 mmol/L (98-107); Estimated Glomerular Filt Rate > 60; Glucose 110 mg/dL (65-110); Potassium 4.2 mmol/L (3.4-5.0); Sodium 139 mmol/L (137-145); Total Protein 7.3 g/dL (6.3-8.2)
[2025-04-22 07:34] LABS: Free T4 Free Thyroxine 1.07 ng/dL (0.78-2.19)
[2025-04-22] MEDS: COSYNTROPIN 0.25 MG/ML VIAL IM (07:50)
[2025-04-22 07:53] LABS: Thyroid Stimulating Hormone 4.510 uIU/mL (0.465-4.680)
[2025-04-22 09:50] LABS: Cortisol 60 Minute 19.80 ug/dL
[2025-04-24 17:09] LABS: Osmolality, Urine. 644 mOsm/kg (50-1200)
== END 2025-04-22 06:42 | disposition home or self-care (01) ==
LOC: ANHLAB 06:42
PROVIDERS: PCP Family Medicine; Visit Provider Internal Medicine
DX: E87.20 Acidosis, unspecified (principal); E86.0 Dehydration; E87.29 Other acidosis; E13.9 Other specified diabetes mellitus without complications; R63.4 Abnormal weight loss; R79.89 Other specified abnormal findings of blood chemistry; E83.39 Other disorders of phosphorus metabolism; E78.5 Hyperlipidemia, unspecified; Z71.3 Dietary counseling and surveillance; Z46.81 Encounter for fitting and adjustment of insulin pump
CPT/HCPCS: 36415; 80053; 82024; 82533; 83930; 83935; 84439; 84443; 96372; J0834